=== PATIENT | female | born 1950 | race Caucasian/White ===

== ENCOUNTER 2024-07-30 10:38 | Outpatient (AMB) | payer MEDICARE, SELFPAY ==
[2024-07-30 10:52] VITALS: BMI 21.4
--- NOTE | 2024-07-30 10:52 | HO.SPINEOV ---
Vital Signs 07/30/24 10:52 Height 4 ft 11 in Weight 106 lb BMI 21.4 Intake Visit Reasons: LBP Intake Note: Ms. Toribio is here today c/o Low back pain. [employer] Operations Consultant Required: No Allergies No Known Allergies Allergy (Verified 07/30/24 10:52) Physical Exam Vital Signs: BMI result Body Mass Index 21.4 Assessment & Plan Assessment & Plan (1) Juvenile idiopathic scoliosis: Code(s): M41.119 - Juvenile idiopathic scoliosis, site unspecified Category: Medical (2) Osteoporosis: Code(s): M81.0 - Age-related osteoporosis without current pathological fracture Category: Medical Plan Dear colleague On 07/30/2024, I saw for 2nd opinion Brianna Toribio for back pain. HPI: This 73-year-old female is known with a juvenile thoracolumbar scoliosis. She always had back pain but was able to manage it. The last years the pain has been come more prominent and more difficult to manage. She was evaluated by an orthopedic surgeon in [place] who propose to correct her scoliosis to an anterior-posterior approach despite the fact that she is having osteoporosis. On inspection, the patient has a significant thoracolumbar scoliosis, which is confirmed by imaging. T4 is the 1st level where the endplates were parallel. I told the patient that I would not entertain the thought of giving her major spinal surgery. I do not understand the rationale to start correcting aid juvenile scoliosis in a 73-year-old female and stopping the construct at T10. Moreover, this patient has osteoporosis and a major surgery like that will absolutely fail. I discharged her from further follow-up. total time spent was 40 minutes in counseling ,coordination of plan, personal review of imaging, surgical decision making and subsequent plan Naun Bazan MD, PhD Spine Fellowship Trained Neurosurgeon Director, [facility] Coding Level of Care Code New Pt Level 3 (16357) Diagnoses Juvenile idiopathic scoliosis M41.119 Osteoporosis M81.0
--- OUTSIDE RECORDS SUMMARY | 2024-07-30 11:41 | XMS_ITS | Clinical Summary ---
Author Organization [facility] Address [address] [place] [address] Care Team Providers Care Transistor Tester Name Role Phone Carla Marie MD Primary Care Provider [phone] Allergies No known active allergies Medications ezetimibe (ZeTIA) 10 MG tablet Take 10 mg by mouth daily. Active buPROPion (WELLBUTRIN XL) 300 MG 24 hr tablet Take 300 mg by mouth every morning. Swallow whole; do not crush, chew, or divide. Active sertraline (ZOLOFT) 50 MG tablet Take 100 mg by mouth daily. Active amphetamine-dex troamphetamine (ADDERALL, 10MG,) 10 MG tablet Take 10 mg by mouth daily. 10/20/2017 Active oxyCODONE (ROXICODONE) 10 mg Tab immediate release tablet TAKE 1 TABLET BY MOUTH 4 TIMES DAILY NEEDED FOR PAIN 0 10/08/2017 Active lisinopril (PRINIVIL,ZeSTR IL) 20 MG tablet Take 25 mg by mouth daily. Active Vitamin D3 (CHOLECALCIFERO L) 50 MCG (2000 UT) tablet Take 2,000 Units by mouth daily. Active rosuvastatin (CRESTOR) 40 MG tablet Take 40 mg by mouth daily. Active Azelastine-Flut icasone (Dymista) 137-50 MCG/ACT Suspension into each nostril as needed. Active Multiple Vitamins-Minera ls (PRESERVISION AREDS 2+MULTI VIT PO) Take by mouth daily. Active acetaminophen (TYLENOL) 325 MG tabletIndicatio ns:Left carpal tunnel syndrome Take 2 tablets (650 mg total) by mouth 4 times daily (every 6 hours) as needed for mild pain. 30 tablet 03/30/2020 Active oxyCODONE (ROXICODONE) 5 MG immediate release tabletIndicatio ns:Left carpal tunnel syndrome Take 1 tablet (5 mg total) by mouth every 4 (four) hours as needed for severe pain. Max Daily Amount: 30 mg 7 tablet 03/30/2020 Active Active Problems No known active problems Immunizations Immunization Administration Dates Next Due Influenza Inactivated/Split Preservative Free IM 03/26/2018 Social History Tobacco Use Types Packs/Day Years Used Date Smoking Tobacco: Former Cigarettes Q uit: 1986 Smokeless Tobacco: Never Alcohol Use Standard Drinks/Week Comments Yes 1 (1 standard drink = 0.6 oz pur e alcohol) 2x/week Comments No Sex and Gender Information Value Date Recorded Sex Assigned at Female 05/24/2024 3:07 PM EST Legal Sex Female 5:08 PM EDT Gender Identity Female 05/24/2024 3:07 PM EST Sexual Orientation Heterosexual (straight) 05/24 3:07 PM EST Last Filed Vital Signs Vital Sign Reading Time Taken Comments Blood Pressure 137/80 03/30/2020 5:15 PM EST Pulse 88 03/30/2020 5:15 PM EST Temperature 36.1 ??C (96.9 ??F) 03/30/2020 3:57 PM ES T Respiratory Rate 13 03/30/2020 5:15 PM EST Oxygen Saturation 96% 03/30/2020 5:15 PM EST Inhaled Oxygen Concentration - - Weight 49 kg (108 lb) 03/21/2020 5:19 PM EST Height 157.5 cm (5' 2 ) 03/21/2020 5:19 PM EST Body Mass Index 19.75 03/21/2020 5:19 PM EST Plan of Treatment Health Maintenance Due Date Last Done Comments Hepatitis C Virus Screening 1950 DTaP/Tdap/Td Vaccines (1 - Tdap) 1969 Colonoscopy 10/05/1995 Pneumococcal Vaccines 50+ (1 of 1 - PCV) 2000 Zoster (Shingles) Vaccine (1 of 2) 2000 DXA Bone Density (Females,Ages 65 and older) 01/10/2023 01/10/2021, 07/06/2018 Mammogram 09/19/2023 09/18/2021, 06/12, 03/31/2020, Additional history exists Influenza Vaccine 11/13/2023 03/15/2022, , 03/19/2021, Additional history exists COVID-19 Vaccine ( season) 2023 02/25/2022, 12/29/2020, 07/10/2020, Additional history exists RSV Vaccine 60 years and older and Patients (1 - 1-dose 75+ series) 2025 Hepatitis B Vaccines Aged Out No long er eligible based on patient's age to complete this topic Medical Devices Implanted Type Area Color Paste Mixer Device Identifier Shelf Expiration Date Model / Serial / Lot Memory Gel Breast Implant Implanted:Qty: 1 on 12/12/2017 by Sabino Chaves MD at [facility] Breast Left: Breast [employer] [facility] 11/28/2021 [id number] / [id number] / Procedures Procedure Name Priority Date/Time Associated Diagnosis Comments MG HELIO- BREAST DIAGNOSTIC RIGHT Routine 09/18/2021 4:21 PM EDT BD BONE DENSITY STUDY - AXIAL Routine 01/10/2021 7:13 AM EDT from Last 3 Months or Most Recently Relevant to Health Maintenance Results * MG HELIO- BREAST DIAGNOSTIC RIGHT (09/18/2021 4:21 PM EDT) Anatomical Region Laterality Modality Other 09/18/2021 9:00 AM EDT 09/18/2021 9:00 AM EDT Narrative 09/18/2021 4:21 PM EDT HISTORY: Patient is 70 years old and is seen for diagnostic evaluation of palpable abnormality felt by referring clinician in the right breast. The patient has a history of left mastectomy more than 10 years ago. ??The patient has a history of left breast cancer in 2000. The patient has the following family history of breast cancer: ??female cousin, at age 40, breast cancer and paternal aunt, at age 45. FILMS COMPARED: The present examination has been compared to prior imaging studies dated 06/11/2021 and 03/23/2020. HELIO STATEMENT: Computer-aided detection was utilized by the radiologist in the interpretation of this examination. The following digital mammographic views were obtained: right craniocaudal with tomosynthesis, right craniocaudal spot compression with tomosynthesis, right mediolateral oblique with tomosynthesis, right mediolateral oblique spot compression with tomosynthesis. MAMMOGRAM FINDINGS: The breast is heterogeneously dense, which may obscure small masses. (ACR BIRADS density Category c) * There is a saline implant in the left breast. Finding 1: ??There are amorphous and fine pleomorphic calcifications with grouped distribution seen in the right breast upper outer quadrant at 10 oclock located 4 centimeters from the nipple. Finding 2: ??There are amorphous calcifications with grouped distribution seen in the right breast upper outer quadrant at 11 oclock located 6 centimeters from the nipple. Finding 3: ??There is no radiographic abnormality in the region of the palpable abnormality in the right breast at 8 oclock located 1 centimeter from the nipple. ULTRASOUND FINDINGS: Targeted high resolution grayscale sonography was performed of the area of concern. Finding 3: ??There is an area of altered echotexture with angular margins and internal vascularity measuring 4 millimeters seen in the right breast lower outer quadrant at 8 oclock located 1 centimeter from the nipple. Internal echogenicity is hypoechoic. There is no effect on posterior tissue. Finding correlates to the palpable abnormality in the right breast at 8 oclock located 1 centimeter from the nipple. Finding 4: ??There is a solid mass with internal vascularity measuring 10 x 5 x 10 mm seen in the left breast upper outer quadrant at 2 oclock. Internal echogenicity is hypoechoic. There is increased sound transmission. Finding correlates to the palpable abnormality in the left breast at 2 oclock. This finding is most consistent with a intramammary lymph node. Per the patient this has been a stable palpable finding. Finding 5: ??There is an oval solid mass with internal vascularity measuring 8 x 4 x 8 mm seen in the left breast at 3 oclock. Internal echogenicity is hypoechoic. There is increased sound transmission. Finding correlates to the palpable abnormality in the left breast at 3 oclock. This finding is most consistent with a intramammary lymph node. Per the patient this has been a stable palpable finding. IMPRESSION: Finding 1: ??Calcifications in the right breast upper outer quadrant at 10 oclock located 4 centimeters from the nipple are suspicious. A stereotactically guided core biopsy is recommended. Finding 2: ??Amorphous calcifications in the right breast upper outer quadrant at 11 oclock located 6 centimeters from the nipple are probably benign. A short interval follow-up diagnostic 2D mammogram of the right breast in 6 months is recommended. Finding 3: ??Area of altered echotexture in the right breast is suspicious. An ultrasound core guided biopsy is recommended. Recommendations given to Julianne OLIVARES on 09/18/21 @ 2:00pm. Finding 4: ??Solid mass in the left breast upper outer quadrant at 2 oclock is probably benign. Short interval follow-up diagnostic ultrasound of the left breast in 6 months is recommended. Finding 5: ??Solid mass in the left breast at 3 oclock is probably benign. Short interval follow-up diagnostic ultrasound of the left breast in 6 months is recommended. The patient was informed of these findings at the time of the exam. The patient will receive a lay summary of the results of this breast imaging exam. Lay summaries for mammography examinations will also identify the patients personal breast tissue composition as required by state law. BIRADS Category 4: Suspicious Abnormality Thank you for referring your patient to us, Juju Lee MD [id number] (Electronically Signed - 09/18/2021 16:21) Procedure Note Juju Lee MD - 09/18/2021 HISTORY: Patient is 70 years old and is seen for diagnostic evaluation of palpableabnormality felt by referring clinician in the right breast. The patient has a history of left mastectomy more than 10 years ago. Thepatient has a history of left breast cancer in 2000. The patient has the following family history of breast cancer: female cousin, at age 40, breast cancer and paternal aunt, at age 45. FILMS COMPARED: The present examination has been compared to prior imaging studies dated06/11/2021 and 03/23/2020. HELIO STATEMENT: Computer-aided detection was utilized by the radiologist in the interpretation of this examination. The following digital mammographic views were obtained: right craniocaudalwith tomosynthesis, right craniocaudal spot compression withtomosynthesis, right mediolateral oblique with tomosynthesis, rightmediolateral oblique spot compression with tomosynthesis. MAMMOGRAM FINDINGS: The breast is heterogeneously dense, which may obscure small masses. (ACRBIRADS density Category c) * There is a saline implant in the left breast. Finding 1: There are amorphous and fine pleomorphic calcifications withgrouped distribution seen in the right breast upper outer quadrant at 10oclock located 4 centimeters from the nipple. Finding 2: There are amorphous calcifications with grouped distribution seen in the right breast upper outer quadrant at 11 oclock located 6centimeters from the nipple. Finding 3: There is no radiographic abnormality in the region of the palpable abnormality in the right breast at 8 oclock located 1 centimeterfrom the nipple. ULTRASOUND FINDINGS: Targeted high resolution grayscale sonography was performed of the area ofconcern. Finding 3: There is an area of altered echotexture with angular margins and internal vascularity measuring 4 millimeters seen in the right breastlower outer quadrant at 8 oclock located 1 centimeter from the nipple.Internal echogenicity is hypoechoic. There is no effect on posterior tissue. Finding correlates to the palpable abnormality in the rightbreast at 8 oclock located 1 centimeter from the nipple. Finding 4: There is a solid mass with internal vascularity measuring 10x 5 x 10 mm seen in the left breast upper outer quadrant at 2 oclock. Internal echogenicity is hypoechoic. There is increased soundtransmission. Finding correlates to the palpable abnormality in the leftbreast at 2 oclock. This finding is most consistent with a intramammary lymph node. Per thepatient this has been a stable palpable finding. Finding 5: There is an oval solid mass with internal vascularitymeasuring 8 x 4 x 8 mm seen in the left breast at 3 oclock. Internal echogenicity ishypoechoic. There is increased sound transmission. Finding correlates to the palpable abnormality in the left breast at 3 oclock. This finding is most consistent with a intramammary lymph node. Per thepatient this has been a stable palpable finding. IMPRESSION: Finding 1: Calcifications in the right breast upper outer quadrant at 10oclock located 4 centimeters from the nipple are suspicious. Astereotactically guided core biopsy is recommended. Finding 2: Amorphous calcifications in the right breast upper outer quadrant at 11 oclock located 6 centimeters from the nipple are probablybenign. A short interval follow-up diagnostic 2D mammogram of the right breast in 6 months is recommended. Finding 3: Area of altered echotexture in the right breast issuspicious. An ultrasound core guided biopsy is recommended. Recommendations given to Julianne OLIVARES on 09/18/21 @ 2:00pm. Finding 4: Solid mass in the left breast upper outer quadrant at 2oclock is probably benign. Short interval follow-up diagnostic ultrasound ofthe left breast in 6 months is recommended. Finding 5: Solid mass in the left breast at 3 oclock is probably benign.Short interval follow-up diagnostic ultrasound of the left breast in 6 months is recommended. The patient was informed of these findings at the time of the exam. The patient will receive a lay summary of the results of this breast imaging exam. Lay summaries for mammography examinations will alsoidentify the patients personal breast tissue composition as required bystate law. BIRADS Category 4: Suspicious Abnormality Thank you for referring your patient to us, Juju Lee MD [id number] (Electronically Signed - 09/18/2021 16:21) us Milvia Ballesteros DO IMG LEGACY PROCEDURES Alysia l Result * BD BONE DENSITY STUDY - AXIAL (01/10/2021 7:13 AM EDT) Anatomical Region Laterality Modality Other 01/09/2021 10:1 5 AM EDT 01/09/2021 10:15 AM EDT Narrative 01/10/2021 7:13 AM EDT EXAMINATION: BONE DENSITOMETRY CLINICAL INDICATION: Osteoporosis. COMPARISON: Previous BD dated 07/06/2018 and baseline BD dated 09/21/2004. TECHNIQUE: Using a Near Infinity DXA system (software version: 14.10) manufactured by [employer], dual-energy x-ray absorptiometry was performed of the lumbar spine and left hip. The images are of good technical quality. Summary results are attached. FINDINGS: AP SPINE L1-L4: Current: BMD 1.124 g/cm2, Z-score 1.9, T-score -0.5, normal, 8.1% decrease from previous, 2.2% decrease from baseline (<5% change is not significant). Prior: BMD 1.223 g/cm2. Baseline: BMD 1.149 g/cm2. LEFT FEMUR, NECK: Current: BMD 0.730 g/cm2, Z-score -0.1, T-score -2.2, osteopenia. Prior: BMD 0.745 g/cm2. Baseline: BMD 0.913 g/cm2. LEFT FEMUR, TOTAL: Current: BMD 0.763 g/cm2, Z-score 0.0, T-score -1.9, osteopenia, 2.6% decrease from previous, 16.8% decrease from baseline (<5% change is not significant). Prior: BMD 0.783 g/cm2. Baseline: BMD 0.917 g/cm2. IDENTIFIED RISK FACTORS: Menopause, height loss, family history (parent hip fracture), low body weight, osteoporosis. HISTORY OF FRACTURE: None listed. MEDICATIONS: Vitamin D. IMPRESSION: 1. DIAGNOSIS: Osteopenia based on the lowest T-score value of -2.2 in the femoral neck applying World Health Organization criteria. ?? 2. 10-YEAR FRACTURE RISK PREDICTION, FRAX: Major osteoporotic fracture (clinical spine, forearm, hip or shoulder) 18.3%. Hip fracture 5.9%. 3. Treatment Recommendations: NOF guidelines recommend consideration for treatment in postmenopausal women and men age 50 and older presenting with the following: -A hip or vertebral (clinical or morphometric) fracture. -T-score less than or equal to -2.5 at the femoral neck or spine after appropriate evaluation to exclude secondary causes. -Low bone mass at the hip or spine and a 10-year fracture probability by FRAX of greater than or equal to 3% for hip fracture or greater than or equal to 20% for major osteoporotic fracture based on the [place] adapted WHO algorithm. 4. Other Recommendations: All treatment decisions require clinical judgment and consideration of individual patient factors, including patient preferences, comorbidities, previous drug use, risk factors not captured in the FRAX model (e.g. frailty, falls, vitamin D deficiency, increased bone turnover, interval significant decline in bone density) and possible under or overestimation of fracture risk by FRAX. Additional medical evaluation for secondary cause of low bone mineral density may be appropriate. FUTURE SCAN RECOMMENDATION: People with diagnosed cases of osteoporosis or at high risk for fracture should have regular bone mineral density tests. For patients eligible for Medicare, routine testing is allowed once every 2 years. The testing frequency can be increased to one year for patients who have rapidly progressing disease, those who are receiving or discontinuing medical therapy to restore bone mass, or have additional risk factors. Thank you for referring your patient to us, Vivek Demarco MD [phone] (Electronically Signed - 01/10/2021 07:13) Copy: CARLA MARIE MD [employer] [address] [place] [address] PATIENT , ?? Procedure Note Vivek Demarco B - 01/10/2021 EXAMINATION: BONE DENSITOMETRY CLINICAL INDICATION: Osteoporosis. COMPARISON: Previous BD dated 07/06/2018 and baseline BD dated 09/21/2004. TECHNIQUE: Using a Near Infinity DXA system (software version:14.10) manufactured by [employer], dual-energy x-ray absorptiometrywas performed of the lumbar spine and left hip. The images are of goodtechnical quality. Summary results are attached. FINDINGS: AP SPINE L1-L4: Current: BMD 1.124 g/cm2, Z-score 1.9, T-score -0.5, normal, 8.1%decrease from previous, 2.2% decrease from baseline (<5% change is notsignificant). Prior: BMD 1.223 g/cm2. Baseline: BMD 1.149 g/cm2. LEFT FEMUR, NECK: Current: BMD 0.730 g/cm2, Z-score -0.1, T-score -2.2, osteopenia. Prior: BMD 0.745 g/cm2. Baseline: BMD 0.913 g/cm2. LEFT FEMUR, TOTAL: Current: BMD 0.763 g/cm2, Z-score 0.0, T-score -1.9, osteopenia, 2.6%decrease from previous, 16.8% decrease from baseline (<5% change is notsignificant). Prior: BMD 0.783 g/cm2. Baseline: BMD 0.917 g/cm2. IDENTIFIED RISK FACTORS: Menopause, height loss, family history (parent hip fracture), low bodyweight, osteoporosis. HISTORY OF FRACTURE: None listed. MEDICATIONS: Vitamin D. IMPRESSION: 1. DIAGNOSIS: Osteopenia based on the lowest T-score value of -2.2 inthe femoral neck applying World Health Organization criteria. 2. 10-YEAR FRACTURE RISK PREDICTION, FRAX: Major osteoporotic fracture (clinical spine, forearm, hip or shoulder) 18.3%. Hip fracture 5.9%. 3. Treatment Recommendations: NOF guidelines recommend consideration for treatment in postmenopausal women and men age 50 and older presenting withthe following: -A hip or vertebral (clinical or morphometric) fracture. -T-score less than or equal to -2.5 at the femoral neck or spine after appropriate evaluation to exclude secondary causes. -Low bone mass at the hip or spine and a 10-year fracture probability byFRAX of greater than or equal to 3% for hip fracture or greater than or equalto 20% for major osteoporotic fracture based on the [place] adapted WHOalgorithm. 4. Other Recommendations: All treatment decisions require clinicaljudgment and consideration of individual patient factors, including patient preferences, comorbidities, previous drug use, risk factors not capturedin the FRAX model (e.g. frailty, falls, vitamin D deficiency, increasedbone turnover, interval significant decline in bone density) and possible underor overestimation of fracture risk by FRAX. Additional medical evaluationfor secondary cause of low bone mineral density may be appropriate. FUTURE SCAN RECOMMENDATION: People with diagnosed cases of osteoporosis or at high risk for fracture should have regular bone mineral density tests. For patients eligiblefor Medicare, routine testing is allowed once every 2 years. The testingfrequency can be increased to one year for patients who have rapidly progressing disease, those who are receiving or discontinuing medical therapy torestore bone mass, or have additional risk factors. Thank you for referring your patient to us, Vivek Demarco MD [phone] (Electronically Signed - 01/10/2021 07:13) Copy: CARLA MARIE MD [employer] [address] [employer] [address] PATIENT , Bry Padron MD IMG LEGACY PROCEDURES Fin al Result from Last 3 Months or Most Recently Relevant to Health Maintenance Insurance [facility] Advance Directives * Full Code (Latest Code Status on File) Date Activated Date Inactivated Comments 12/12/2017 11:29 AM 03/30/2020 1:15 PM Care Teams Transistor Tester Relationship Specialty Start Date End Date Carla Marie MD PCP - General Cardiovascular Disease 08/28/15
--- OUTSIDE RECORDS SUMMARY | 2024-07-30 11:41 | XMS_ITS | Encounter Summary ---
Author Organization [facility] Address [address] [place] [id number] Care Team Providers [employer] Name Role Phone Bhavesh Marie MD Primary Care Provider [phone] Encounter Details Date Type Department Care Team (Late st Contact Info) Description 10/13/2017 3:50 PM EDT Hospital Encounter [facility] [address] [place] [address] Maurilio Martin MD [address] [place] [address] Social History Tobacco Use Types Packs/Day Years [...] Orientation Heterosexual (straight) 05/24 3:07 PM EST COVID-19 Exposure Response Date Recorded In the last month, have you been in contact with someone who was confirmed or suspected to have Coronavirus / COVID-19? No / Unsure 03/30/2020 1:41 PM EST documented as of this encounter Plan of Treatment Not on file documented as of this encounter Procedures Procedure Name Priority Date/Time Associated Diagnosis Comments XR HAND 3+ VIEWS-LEFT Routine 10/13/2017 3:55 PM EDT Pain of finger of left hand documented in this encounter Results * XR Hand 3+ views-Left (10/13/2017 3:55 PM EDT) Anatomical Region Laterality Modality Hand Left Computed Radiogr aphy 10/13/2017 3:56 PM EDT Impressions 10/13/2017 3:58 PM EDT Osteophytic changes are seen in the first and second DIP joints. No acute process. Narrative 10/13/2017 3:58 PM EDT XR HAND 3+ VIEWS-LEFT: 10/13/2017 3:50 PM CLINICAL HISTORY: 1st and 2nd digit pain. Pain of finger of left hand. 3 views. 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 The soft tissues are unremarkable. Procedure Note Yarelis Mendez MD - 10/13/2017 XR HAND 3+ VIEWS-LEFT: 10/13/2017 3:50 PM CLINICAL HISTORY: 1st and 2nd digit pain. Pain of finger of left hand. 3 views. FINDINGS: Mild osteoarthritic changes are seen in the first and second DIPjoints with some joint space narrowing and marginal osteophyte formation.The soft tissues are unremarkable. IMPRESSION: Osteophytic changes are seen in the first and second DIP joints. No acute process. [facility] ORDER[facility] S Final Result documented in this encounter Visit Diagnoses Not on filedocumented in this encounter Care Teams [employer] Relationship Specialty Start Date End Date Bhavesh Marie MD PCP - General Cardiovascular Disease 08/28/15 documented as of this encounter
--- OUTSIDE RECORDS SUMMARY | 2024-07-30 11:41 | XMS_ITS | Clinical Summary ---
Author Organization [facility] Address [address] [place] [address] Care Team Providers Care Public Health Microbiologist Name Role Phone Salima Medley Primary Care Provider [phone] Salima Medley Unavailable Allergies Active Allergy Reactions Criticality Noted Date Comments House Dust Itching 06/13/2022 Other Other (see comments) 04/15/2013 Mold Medications * This document contains information received from the source organization and may not represent a complete record from that organization. cholecalciferol, vitamin D3, 50 mcg (2,000 unit) tablet Take 2,000 Units by mouth in the morning. Active traZODone (DESYREL) 50 mg tablet TAKE 1 TABLET BY MOUTH EVERYDAY AT BEDTIME 3 Active tamoxifen (NOLVADEX) 20 mg chemo tablet Take 20 mg by mouth in the morning. 3 Active meloxicam (MOBIC) tablet TAKE 1 TABLET TWICE A DAY NEEDED WITH FOOD DNFB 10/08/21 3 Active loratadine 10 mg capsule Take 10 mg by mouth in the morning and 10 mg before bedtime. Active vit C,T-Pz-ogcfw-lut ein-zeaxan (PreserVision AREDS-2) 250-90-40-1 mg capsule Take by mouth daily. Active tretinoin (RETIN-A) 0.05 % cream Apply topically nightly. Active cyanocobalamin, vitamin B-12, (VITAMIN B-12 ORAL) Take 1 tablet by mouth in the morning. Active PreviDent 5000 Booster Plus 1.1 % paste 3 Active azelastine (ASTELIN) 137 mcg (0.1 %) nasal sprayIndications :Allergic rhinitis, unspecified seasonality, unspecified trigger use 2 sprays in each nostril twice daily 90 mL 3 4 Active venlafaxine XR (EFFEXOR-XR) 37.5 mg 24 hr capsule Take 37.5 mg by mouth in the morning. Patient reports 225 mg daily reported on 12/18/2023. . 4 Active ARIPiprazole (ABILIFY) 2 mg tablet Take 1 mg by mouth. 4 Active rosuvastatin (CRESTOR) 40 mg tabletIndication s:Hypercholester emia TAKE 1 TABLET BY MOUTH IN THE MORNING 90 tablet 3 4 Active ezetimibe (ZETIA) 10 mg tabletIndication s:Hypercholester emia Take 1 tablet (10 mg total) by mouth nightly. 100 tablet 3 4 01/20/20 25 Active lisinopriL (PRINIVIL) 20 mg tabletIndication s:Essential hypertension TAKE 2 TABLETS BY MOUTH IN THE MORNING 180 tablet 3 4 Active prucalopride (MOTEGRITY) 1 mg tabletIndication s:Chronic constipation Take 1 tablet (1 mg total) by mouth in the morning. 30 tablet 2 5 09/16/19 25 Active Additional Information Patient not taking.Reported on 07/15/2024 amLODIPine (NORVASC) 5 mg tabletIndication s:Essential hypertension Take 1 tablet (5 mg total) by mouth in the morning. 90 tablet 3 5 Active oxyCODONE (ROXICODONE) 10 mg tablet TAKE 1 TABLET EVERY 4 HOURS NEEDED 5 Active Active Problems Problem Noted Date Diagnosed Date Age-related osteoporosis wit hout current pathological fracture 08/04/2023 History of vertebral compression fracture 2023 Gluteal pain 08/04/2023 Hypercholesteremia 08/20/2022 Overview (08/20/2022): 06/04/2022 cholesterol 142 HDL 93 triglycerides 61 LDL 35 JESÚS (generalized anxiety disorder) 06/20/2022 Malignant tumor of breast 04/01/2022 Overview (10/17/2022): typical ductal hyperplasia right breast lobular carcinoma in situ 8 atypical ductal hyperplasia right breast mastectomy partial 04/12/2022 Malignant tumor of breast 04/01/2022 lobular carcinoma in situ of right breast 03/19/2022 history of breast biopsy 11/18/2021 atypical ductal hyperplasia right breast 11/16/2021 2002 left mastectomy, TRAM flap rconstruction and XRT. Lobular carcinoma in situ (LCIS) of right breast 03/19/2022 Overview (08/20/2022): Added automatically from request for surgery [id number] Atypical ductal hyperplasia of breast 10/18/2021 Overview (10/17/2022): right breast/ 2021 Osteopenia 07/14/2018 Overview (10/17/2022): 07/09/18 T score spine -2.1, fem neck -1.8; FRAX: 18.3% risk of major osteoporotic fx & 3.3% risk of hip fx Scoliosis, or kyphoscoliosis, idiopathic 012 Overview (08/20/2022): Levoconvex thoracolumbar and dextroconvex mid thoracic curves.?? Pain management Dr Sebastian In past Has been in 2 week program through a chiropracter Allergic rhinitis 02/18/2012 Depressive disorder 02/18/2012 Disorder of bone and articular cartilage 012 Essential hypertension 02/18/2012 Resolved Problems Problem Noted Date Diagnosed Date Resolved Date Menopausal syndrome 08/20/2022 09/04/19 24 Recurrent major depressive d isorder, in partial remission 06/20/2022 09/04/2023 Pure hypercholesterolemia 04/01/2012 Encounters Date Type Department Care Team Description 07/15/2024 1:30 PM EDT Office Visit [facility] Department of Comprehensive Spine Services [address] [place] [address] Abdiel Garrison MD 07/13/2024 5:30 PM EDT Ancillary Procedure [facility] Imaging Department of MRI [address] [place] [address] Spinal stenosis of lumbar region with neurogenic claudication; Idiopathic scoliosis in adult patient 07/13/2024 5:00 PM EDT Ancillary Procedure [facility] Imaging Department of MRI [address] [place] [address] Spinal stenosis of lumbar region with neurogenic claudication; Idiopathic scoliosis in adult patient 07/13/2024 4:30 PM EDT Ancillary Procedure [facility] Department of Cat Scan [address] [place] [address] Spinal stenosis of lumbar region with neurogenic claudication; Idiopathic scoliosis in adult patient 07/13/2024 4:15 PM EDT Ancillary Procedure [facility] Department of Cat Scan [address] [place] [address] Spinal stenosis of lumbar region with neurogenic claudication; Idiopathic scoliosis in adult patient 06/21/2024 3:30 PM EDT Ancillary Procedure [facility] Department of Xray [address] [place] [address] 06/21/2024 3:15 PM EDT Office Visit [facility] of Comprehensive Spine Services [address] [place] [address] Abdiel Garrison MD Spinal stenosis of lumbar region with neurogenic claudication (Primary Dx); Idiopathic scoliosis in adult patient 06/17/2024 2:20 PM EST Office Visit [facility] Department of Internal Medicine [address] [place] [phone] Salima Medley for annual wellness visit (AWV) in Medicare patient (Primary Dx); Annual physical exam; Chronic constipation; Essential hypertension; Age-related osteoporosis without current pathological fracture; Depressive disorder; Spinal stenosis at L4-L5 level; Scoliosis, or kyphoscoliosis, idiopathic; Osteopenia of both hips; Prophylactic use of SERMs; BMI 21.0-21.9, adult from Last 3 Months Immunizations Immunization Administration Dates Next Due COVID-19 MRNA (MODERNA) 12/29/2020,06/07/2020 COVID-19 MRNA MODERNA BIVALENT 02/25/2022 Influenza Vaccine 65y and older 03/15/2022,03/19,03/17/2019 Influenza, Quadrivalent 03/26/2018,03/21/2017, Pneumococcal Polysaccharide PCV-23 03/17/2019, Shingrix (Zoster Recombinant) 02/25/2022 Tdap 04/28/2016 Family History Medical History Relation Comments Hypertension Father Stroke Maternal Grandmother Arthritis Mother Lymphoma Nephew Ovarian cancer Sister 1 Cancer Sister 2 Relation Status Comments Father Maternal Grandmother Mother Nephew Alive Sister 1 Alive Sister 2 Social History Tobacco Use Types Packs/Day Years Used Date Smoking Tobacco: Former Cigarettes 0.5 15.1 0 09/15/1971 - 10/12/1986 Smokeless Tobacco: Never Tobacco Cessation:Counseling Given: Not Answered Alcohol Use Standard Drinks/Week Comments Yes 1 (1 standard drink = 0.6 oz pure alcohol) red wine & chocolate for [facility] Utilities Answer Date Recorded In the past 12 months has [employer] electric, gas, oil, or water company threatened to shut off services in your home? No 06/17/2024 Overall Financial Resource Strain (CARDIA) Answe r Date Recorded How hard is it for you to pa y for the very basics like food, housing, medical care, and heating? Not hard at all 06/17/2024 PHQ-2 Answer Date Recorded PHQ-2 Score 2 06/17/2024 Exercise Vital Sign Answer Date Recorde d On average, how many days pe r week do you engage in moderate to strenuous exercise (like a brisk walk)? 4 days 06/17/2024 On average, how many minutes do you engage in exercise at this level? 40 min 06/17/2024 Hunger Vital Sign Answer Date Recorded Within the past 12 months, y ou worried that your food would run out before you got the money to buy more. Never true 06/18/19 25 Within the past 12 months, t he food you bought just didn't last and you didn't have money to get more. Never true 06/17/2024 PRAPARE - Transportation Answer Date Re corded In the past 12 months, has l ack of transportation kept you from medical appointments or from getting medications? No 06/17/2024 Lack of Transportation (Non-Medical) Not on file 06/17/2024 Housing Stability Vital Sign Answer Ger e Recorded In the last 12 months, was t here a time when you were not able to pay the mortgage or rent on time? No 06/17/2024 In the past 12 months, how m any times have you moved where you were living? 0 06/17/2024 At any time in the past 12 m [facility], were you homeless or living in a custodial (including now)? No 06/17/2024 Comments Unknown Sex and Gender Information Value Date Recorded Sex Assigned at Female 07/10/2023 9:56 AM EDT Legal Sex Female 9:14 AM EST Gender Identity Female 07/10/2023 9:56 AM EDT Sexual Orientation Straight 07/10/2023 9: 56 AM EDT COVID-19 Exposure Response Date Recorded In the last 10 days, have yo u been in contact with someone who was confirmed or suspected to have Coronavirus/COVID-19? No / Unsure 07/15/2024 1:17 PM EDT Last Filed Vital Signs Vital Sign Reading Time Taken Comments Blood Pressure 159/100 06/21/2024 3:57 PM EDT Pulse 102 06/21/2024 3:57 PM EDT Temperature 36.3 ??C (97.3 ??F) 06/17/2024 2:36 PM ES T Respiratory Rate 16 07/14/2023 2:56 PM EDT Oxygen Saturation 99% 06/17/2024 2:36 PM EST Inhaled Oxygen Concentration - - Weight 48.1 kg (106 lb) 07/09/2024 3:50 PM EDT Height 152.4 cm (5') 07/09/2024 3:50 PM EDT Body Mass Index 20.7 07/09/2024 3:50 PM EDT Plan of Treatment Upcoming Encounters Date Type Department Care Team (Late st Contact Info) Description 08/24/2024 11:20 AM EDT Office Visit [facility] Department of Internal Medicine [address] [place] [phone] Salima Med[address] [place] [address], [place] [address] 06/21/2025 8:40 AM EDT Office Visit [facility] Department of Internal Medicine [address] [place] [phone] Salima Med[address] [place] [id number] Health Maintenance Due Date Last Done Comments CT Colonography 1950 FOBT 1950 Flex Sigmoidoscopy - 5y 1950 FIT-DNA (Cologuard) 06/09/2022 06/09/2019 FIT 10/24/2023 10/23/2022 COVID-19 Vaccine ( season) 2024 03/20/2024, 01/26/2023, 02/25/2022, Additional history exists Colonoscopy 05/11/2025 Colorectal Cancer Screening 05/11/2025 Medicare Annual Wellness (AWV) 06/18/2025 06/17/2024 Bone Density Screening 08/12/2025 08/13/2023 Breast Cancer Screening 03/08/2026 03/08/20 24, 05/09/2023 (Done Elsewhere - With Results), 05/09/2023, Additional history exists DTaP,Tdap,and Td Vaccines (2 - Td or Tdap) 04/28/2026 04/28/2016 Pneumococcal Vaccine, 50+ Years Discontinued 03/17/2019, 04/28/2016 Zoster Vaccines Discontinued 02/25/2022 Influenza Vaccine Completed 03/20/2024, , 03/15/2022, Additional history exists HIV Screening Discontinued HPV Vaccines Aged Out No longer eligi ble based on patient's age to complete this topic Hepatitis A Vaccines Aged Out No long er eligible based on patient's age to complete this topic Hepatitis C Screening Discontinued Meningococcal Vaccine Aged Out No sena walter eligible based on patient's age to complete this topic Procedures Procedure Name Priority Date/Time Associated Diagnosis Comments CT THORACIC SPINE WO IV CONTRAST Routine 07/13/2024 4:29 PM EDT Spinal stenosis of lumbar region with neurogenic claudication Idiopathic scoliosis in adult patient CT LUMBAR SPINE WO IV CONTRAST Routine 07/13/2024 4:29 PM EDT Spinal stenosis of lumbar region with neurogenic claudication Idiopathic scoliosis in adult patient TSH (Q) Routine 06/22/2024 3:16 PM EDT Encounter for annual wellness visit (AWV) in Medicare patient Annual physical exam Chronic constipation Essential hypertension Age-related osteoporosis without current pathological fracture Depressive disorder Spinal stenosis at L4-L5 level Scoliosis, or kyphoscoliosis, idiopathic Osteopenia of both hips BMI 21.0-21.9, adult Prophylactic use of SERMs AST (Q) Routine 06/22/2024 3:16 PM EDT Encounter for annual wellness visit (AWV) in Medicare patient Annual physical exam Chronic constipation Essential hypertension Age-related osteoporosis without current pathological fracture Depressive disorder Spinal stenosis at L4-L5 level Scoliosis, or kyphoscoliosis, idiopathic Osteopenia of both hips BMI 21.0-21.9, adult Prophylactic use of SERMs CBC (H/H, RBC, INDICES, WBC, PLT) (Q) Routine 06/22/2024 3:16 PM EDT Encounter for annual wellness visit (AWV) in Medicare patient Annual physical exam Chronic constipation Essential hypertension Age-related osteoporosis without current pathological fracture Depressive disorder Spinal stenosis at L4-L5 level Scoliosis, or kyphoscoliosis, idiopathic Osteopenia of both hips BMI 21.0-21.9, adult Prophylactic use of SERMs BASIC METABOLIC PANEL (Q) Routine 06/22/2024 3:16 PM EDT Encounter for annual wellness visit (AWV) in Medicare patient Annual physical exam Chronic constipation Essential hypertension Age-related osteoporosis without current pathological fracture Depressive disorder Spinal stenosis at L4-L5 level Scoliosis, or kyphoscoliosis, idiopathic Osteopenia of both hips BMI 21.0-21.9, adult Prophylactic use of SERMs ALT (Q) Routine 06/22/2024 3:16 PM EDT Encounter for annual wellness visit (AWV) in Medicare patient Annual physical exam Chronic constipation Essential hypertension Age-related osteoporosis without current pathological fracture Depressive disorder Spinal stenosis at L4-L5 level Scoliosis, or kyphoscoliosis, idiopathic Osteopenia of both hips BMI 21.0-21.9, adult Prophylactic use of SERMs LIPID PANEL WITH REFLEX TO DIRECT LDL (Q) Routine 06/22/2024 3:16 PM EDT Encounter for annual wellness visit (AWV) in Medicare patient Annual physical exam Chronic constipation Essential hypertension Age-related osteoporosis without current pathological fracture Depressive disorder Spinal stenosis at L4-L5 level Scoliosis, or kyphoscoliosis, idiopathic Osteopenia of both hips BMI 21.0-21.9, adult Prophylactic use of SERMs EOS FULL BODY 2VW (AP+LATERAL) W LUMBAR + CERVICAL FLEX/EX Routine 06/21/2024 3:39 PM EDT Spinal stenosis of lumbar region with neurogenic claudication DXA BONE DENSITY STANDARD EXAM SPINE + FEMUR W OR WO TBS Routine 08/13/2023 3:11 PM EDT Stress reaction of bone Disorder of bone and articular cartilage Osteopenia of multiple sites FECAL IMMUNOCHEMICAL HB Routine 10/23/2022 11:11 AM EDT Screen for colon cancer from Last 3 Months or Most Recently Relevant to Health Maintenance Results * CT thoracic spine wo/ iv contrast (07/13/2024 4:29 PM EDT) Anatomical Region Laterality Modality T-spine, Spine Computed Tomogra phy 07/15/2024 2:20 PM EDT Addenda Addendum by Jaden Goodman MD on 07/15/2024 2:28 PM EDT ADDENDUM: Chronic healed left-sided rib fractures of T11 and T12 posteriorly. Reminder to Patients and Legally Authorized Representatives: Language in this report is designed for medical communication with other treating physicians and clinical practitioners. Please speak with your provider(s) about any questions or concerns related to the content of this report. MIGUEL Gonzales^0 Impressions 07/15/2024 2:24 PM EDT Moderate to severe dextro convex curvature of the mid thoracic spine. No severe spinal canal stenosis. Multilevel degenerative disc disease. Multilevel neural foraminal narrowing as described above. Reminder to Patients and Legally Authorized Representatives: Language in this report is designed for medical communication with other treating physicians and clinical practitioners. Please speak with your provider(s) about any questions or concerns related to the content of this report. MIGUEL Gonzales^0 Narrative 07/15/2024 2:24 PM EDT EXAM: CT THORACIC SPINE WITHOUT CONTRAST INDICATION: Scoliosis thoracolumbar scoliosis M48.062 Spinal stenosis, lumbar region with neurogenic claudication M41.20 Other idiopathic scoliosis, site unspecified COMPARISON: None available. TECHNIQUE: CT scan of the thoracic spine was performed. ??Bone windows are submitted. Exam was performed using automated dose attenuation correction. Multiplanar reformats were performed and reviewed. FINDINGS: No acute fracture. Dextro convex curvature of the midthoracic spine. Degenerative anterior wedging of the T12 vertebral body. Vertebral body heights are otherwise intact. Moderate multilevel degenerative disc disease with right-sided predominance of the lower thoracic spine. No severe spinal canal stenosis. Facets appear well aligned. Moderate lower lumbar spine facet arthropathy. Severe left T6-T7 and T10-T11 neural foraminal narrowing. Severe right T10-T11 neural foraminal narrowing. Paraspinal muscle bulk appears intact. Procedure Note Jaden Goodman MD - 07/15/2024 EXAM: CT THORACIC SPINE WITHOUT CONTRAST INDICATION: Scoliosis thoracolumbar scoliosis M48.062 Spinal stenosis, lumbar region with neurogenic claudication M41.20 Other idiopathic scoliosis, site unspecified COMPARISON: None available. TECHNIQUE: CT scan of the thoracic spine was performed. Bone windows aresubmitted. Exam was performed using automated dose attenuation correction.Multiplanar reformats were performed and reviewed. FINDINGS: No acute fracture. Dextro convex curvature of the midthoracic spine.Degenerative anterior wedging of the T12 vertebral body. Vertebral bodyheights are otherwise intact. Moderate multilevel degenerative discdisease with right-sided predominance of the lower thoracic spine. No severe spinal canal stenosis. Facets appear well aligned. Moderatelower lumbar spine facet arthropathy. Severe left T6-T7 and T10-T11 neural foraminal narrowing. Severe [id number] neural foraminal narrowing. Paraspinal muscle bulk appears intact. IMPRESSION: Moderate to severe dextro convex curvature of the mid thoracic spine. Nosevere spinal canal stenosis. Multilevel degenerative disc disease. Multilevel neural foraminalnarrowing as described above. Reminder to Patients and Legally Authorized Representatives: Language in this report is designed for medical communication with othertreating physicians and clinical practitioners. Please speak with your provider(s) about any questions or concernsrelated to the content of this report. MIGUEL Gonzales^0 us Abdiel Garrison MD IMG CT PROCEDURES Edited R esult - Final * CT lumbar spine wo/ iv contrast (07/13/2024 4:29 PM EDT) Anatomical Region Laterality Modality L-spine, Spine Computed Tomogra phy 07/15/2024 2:10 PM EDT Impressions 07/15/2024 2:19 PM EDT Exam is degraded secondary to extensive scoliotic curvature. Severe levoconvex curvature of the thoracolumbar spine as described above. Degenerative disc disease most prominent at L4-L5 resulting in at least moderate to severe spinal canal stenosis. Multilevel neural foraminal narrowing as described above. Reminder to Patients and Legally Authorized Representatives: Language in this report is designed for medical communication with other treating physicians and clinical practitioners. Please speak with your provider(s) about any questions or concerns related to the content of this report. MIGUEL Gonzales^0 Narrative 07/15/2024 2:19 PM EDT EXAM: CT LUMBAR SPINE WITHOUT CONTRAST INDICATION: Scoliosis thoracolumbar scoliosis M48.062 Spinal stenosis, lumbar region with neurogenic claudication M41.20 Other idiopathic scoliosis, site unspecified COMPARISON: None available. TECHNIQUE: CT scan of the lumbar spine was performed. ??Bone windows are submitted. Exam was performed using automated dose attenuation correction. Multiplanar reformats were performed and reviewed. FINDINGS: There are 5 lumbar-type vertebral bodies. Severe levoconvex curvature of the thoracolumbar spine with apex at L1. Straightening of the normal lumbar lordosis without significant subluxation. Degenerative vertebral body height loss involving the superior endplates of T12 and L1. Vertebral body heights are otherwise intact. Severe multilevel degenerative disc disease with severe disc height loss with right-sided predominance and marginal osteophytes. Extensive subchondral sclerosis is also seen. Severe multilevel facet arthropathy. Facets appear otherwise well aligned. Alignment significantly degrades evaluation of the spinal canal however there is moderate posterior disc bulging at L3-L4 and L4-L5 resulting in at least moderate to severe spinal canal stenosis at L4-L5. Severe multilevel facet arthropathy resulting in severe left L4-L5 and right L1- L2 and L2-L3 neural foraminal narrowing. SI joints demonstrate mild degenerative changes. Paraspinal musculature appears intact. Procedure Note Jaden Goodman MD - 07/15/2024 EXAM: CT LUMBAR SPINE WITHOUT CONTRAST INDICATION: Scoliosis thoracolumbar scoliosis M48.062 Spinal stenosis, lumbar region with neurogenic claudication M41.20 Other idiopathic scoliosis, site unspecified COMPARISON: None available. TECHNIQUE: CT scan of the lumbar spine was performed. Bone windows aresubmitted. Exam was performed using automated dose attenuation correction.Multiplanar reformats were performed and reviewed. FINDINGS: There are 5 lumbar-type vertebral bodies. Severe levoconvex curvature ofthe thoracolumbar spine with apex at L1. Straightening of the normallumbar lordosis without significant subluxation. Degenerative vertebral body height loss involving the superior endplatesof T12 and L1. Vertebral body heights are otherwise intact. Severemultilevel degenerative disc disease with severe disc height loss withright-sided predominance and marginal osteophytes. Extensive subchondralsclerosis is also seen. Severe multilevel facet arthropathy. Facets appear otherwise wellaligned. Alignment significantly degrades evaluation of the spinal canal howeverthere is moderate posterior disc bulging at L3-L4 and L4-L5 resulting inat least moderate to severe spinal canal stenosis at L4-L5. Severe multilevel facet arthropathy resulting in severe left L4-L5 andright L1- L2 and L2-L3 neural foraminal narrowing. SI joints demonstrate mild degenerative changes. Paraspinal musculatureappears intact. IMPRESSION: Exam is degraded secondary to extensive scoliotic curvature. Severe levoconvex curvature of the thoracolumbar spine as describedabove. Degenerative disc disease most prominent at L4-L5 resulting in at leastmoderate to severe spinal canal stenosis. Multilevel neural foraminal narrowing as described above. Reminder to Patients and Legally Authorized Representatives: Language in this report is designed for medical communication with othertreating physicians and clinical practitioners. Please speak with your provider(s) about any questions or concernsrelated to the content of this report. Jaden Goodman, [facility]^0 us Abdiel Garrison MD IMG CT PROCEDURES Final Re sult * CBC (H/H, RBC, INDICES, WBC, PLT) (Q) (06/22/2024 3:16 PM EDT) [facility] White Cell Count 5.3 3.8 - 10.8 Thousand/u L [facility] Red Cell Count 4.23 3.80 - 5.10 Million/uL [facility] Hemoglobin 13.1 11.7 - 15.5 g/dL [facility] Hematocrit 40.1 35.0 - 45.0 % [facility] MCV 94.8 80.0 - 100.0 fL [facility] MCH 31.0 27.0 - 33.0 pg [facility] MCHC 32.7 32.0 - 36.0 g/dL [facility] Comment: For adults, a slight decrease in the calculated MCHC value (in the range of 30 to 32 g/dL) is most likely not clinically significant; however, it should be interpreted with caution in correlation with other red cell parameters and the patient's clinical condition. RBC Distribution Width 11.4 11.0 - 15.0 % [facility] Platelet Count 236 140 - 400 Thousand/u L [facility] MPV 10.1 7.5 - 12.5 fL [facility] 06/22/2024 3:16 PM EDT 06/22/2024 3:17 PM EDT Narrative [facility] - 06/23/2024 6:22 AM EDT FASTING:NO FASTING: NO us Salima UREÑA [facility] LAB ORDERABLES Final R esult [facility] [address] [place] [address] * (ABNORMAL) BASIC METABOLIC PANEL (BMP) (Q) (06/22/2024 3:16 PM EDT) [employer] GLUCOSE 87 65 - 139 mg/dL [facility] Comment: ? Non-fasting reference interval [facility] UREA NITRO (BUN) 10 7 - 25 mg/dL [facility] CREATININE 0.68 0.60 - 1.00 mg/dL [facility] EGFR 92 > OR = 60 mL/min/1. 73m2 [facility] BUN/CREATININE RATIO SEE NOTE: 6 - 22 (calc) [facility] Comment: ?? Not Reported: BUN and Creatinine are within ?? reference range. ? [facility] SODIUM 134(L) 135 - 146 mmol/L [facility] POTASSIUM 4.0 3.5 - 5.3 mmol/L [facility] CHLORIDE 99 98 - 110 mmol/L [facility] Carbon Dioxide (CO2) 28 20 - 32 mmol/L [facility] CALCIUM 9.7 8.6 - 10.4 mg/dL [facility] Blood 06/22/2024 3:16 PM EDT 06/22/2024 3:17 PM EDT Narrative [employer] - 06/23/2024 6:22 AM EDT FASTING:NO FASTING: NO Salima UREÑA [employer] LAB ORDERABLES Final R esult Performing Organization Address [facility]/ZIP Co de Phone Number [employer] [address] [place] [address] * ALT (Q) (06/22/2024 3:16 PM EDT) [facility] ALT 14 6 - 29 U/L [facility] 06/22/2024 3:16 PM EDT 06/22/2024 3:17 PM EDT [facility] - 06/23/2024 6:22 AM EDT FASTING:NO FASTING: NO Salima Medley [employer] LAB ORDERABLES Final R esult [employer] [address] [place] [address] * AST (Q) (06/22/2024 3:16 PM EDT) [facility] AST 21 10 - 35 U/L [facility] Blood 06/22/2024 3:16 PM EDT 06/22/2024 3:17 PM EDT Narrative [facility] - 06/23/2024 6:22 AM EDT FASTING:NO FASTING: NO Salima UREÑA [employer] LAB ORDERABLES Final R esult Performing Organization Address [facility]/ZIP Co de Phone Number [employer] [address] [place] [address] * TSH (Q) (06/22/2024 3:16 PM EDT) [facility] TSH 1.66 0.40 - 4.50 mIU/L [facility] Blood 06/22/2024 3:16 PM EDT 06/22/2024 3:17 PM EDT Narrative [facility] - 06/23/2024 6:22 AM EDT FASTING:NO FASTING: NO Salima UREÑA [employer] LAB ORDERABLES Final R esult Performing Organization Address [facility]/ZIP Co de Phone Number [employer] [address] [place] [phone] * LIPID PANEL WITH REFLEX TO DIRECT LDL (Q) (06/22/2024 3:16 PM EDT) [facility] CHOLESTEROL, TOTAL 124 <200 mg/dL [facility] HDL CHOLESTROL 82 > OR = 50 mg/dL [facility] TRIGLYCERIDES 54 <150 mg/dL [facility] LDL CHOLESTEROL 29 mg/dL (calc) [facility] Comment: Reference range: <100 Desirable range <100 mg/dL for primary prevention; ?? <70 mg/dL for patients with CHD or diabetic patients with > or = 2 CHD risk factors. LDL-C is now calculated using the Dalia calculation, which is a validated novel method providing better accuracy than the Friedewald equation in the estimation of LDL-C. Aaron SS et al. ORALIA. 2013;310(19): 3828-6646 (http://education.Alibaba/faq/LJM905) [facility] CHOL/HDLC RATIO 1.5 <5.0 (calc) [facility] NON HDL CHOLESTEROL 42 <130 mg/dL (calc) [facility] Comment: For patients with diabetes plus 1 major ASCVD risk factor, treating to a non-HDL-C goal of <100 mg/dL (LDL-C of <70 mg/dL) is considered a therapeutic option. 06/22/2024 3:16 PM EDT 06/22/2024 3:17 PM EDT Narrative [facility] - 06/23/2024 6:22 AM EDT FASTING:NO FASTING: NO Salima UREÑA [employer] LAB ORDERABLES Final R esult [employer] [address] [place] [phone] * EOS FULL BODY 2 VW (AP+LATERAL) W LUMBAR + CERVICAL FLEX/EX (06/21/2024 3:39 PM EDT) Anatomical Region Laterality Modality Spine, C-spine, T-spine, L-spine, Lower Leg Digital Radiography 06/21/2024 3:48 PM EDT Impressions 06/21/2024 3:56 PM EDT 1. Scoliosis: T-spine dextroscoliosis of 27 degrees. Thoracolumbar levoscoliosis of 40 degrees. 2. T-spine kyphosis of 35 degrees. 3. Positive sagittal balance. 4. Stable L1 anterior compression deformity. L4-5 4 mm of anterolisthesis on flexion which corrects on extension suspicious for instability. 5. C4-5 and C5-6 malalignment without instability. C-spine osteoarthritis. Electronic signature on this final report indicates that Greg Armendariz MD has personally reviewed this examination Reminder to Patients and Legally Authorized Representatives: Language in this report is designed for medical communication with other treating physicians and clinical practitioners. Please speak with your provider(s) about any questions or concerns related to the content of this report. Narrative 06/21/2024 3:56 PM EDT EXAM: ??EOS FULL BODY 2VW (AP+LATERAL) W LUMBAR + CERVICAL FLEX/EX HISTORY: cervical and lumbar spondylosis M48.062 Spinal stenosis, lumbar region with neurogenic claudication COMPARISON: 10/17/2022 radiographs of the L-spine TECHNIQUE: ??EOS Full Body AP and Lateral and lateral flexion and extension views of the C-spine and L-spine FINDINGS: Scoliosis: Thoracic dextroscoliosis of 27 degrees with probable findings a T1 and T9. Thoracolumbar levoscoliosis of 40 degrees with reference lines at T12 and L5. (Significant curvature = Hammonds angle greater than 10) Kyphosis: 35 degrees. (Normal range 20-45 degrees T3:T12) Sagittal Balance: +7.4 cm. ??(Chi line +/- 2 cm from C7 to post/sup corner of S1) Other Spine Findings: 5 nonrib-bearing lumbar vertebral bodies. Stable L1 anterior compression deformity. Severe osteopenia. No acute fracture or dislocation. L4-5 4 mm of anterolisthesis on flexion which corrects on extension suspicious for instability. C4-5 3 mm of anterolisthesis C5-6 2 to 3 mm of retrolisthesis without instability. No acute fracture or dislocation. Osteopenia. Moderate facet joint DJD throughout. Moderate degenerative disc disease C5-C6 C6-7. Miscellaneous: ??Formed stool throughout large bowel compatible with constipation. Procedure Note Greg Armendariz MD - 06/21/2024 EXAM: EOS FULL BODY 2VW (AP+LATERAL) W LUMBAR + CERVICAL FLEX/EX HISTORY: cervical and lumbar spondylosis M48.062 Spinal stenosis, lumbar region with neurogenic claudication COMPARISON: 10/17/2022 radiographs of the L-spine TECHNIQUE: EOS Full Body AP and Lateral and lateral flexion and extensionviews of the C-spine and L-spine FINDINGS: Scoliosis: Thoracic dextroscoliosis of 27 degrees with probable findings aT1 and T9. Thoracolumbar levoscoliosis of 40 degrees with reference linesat T12 and L5. (Significant curvature = Hammonds angle greater than 10) Kyphosis: 35 degrees. (Normal range 20-45 degrees T3:T12) Sagittal Balance: +7.4 cm. (Chi line +/- 2 cm from C7 to post/supcorner of S1) Other Spine Findings: 5 nonrib-bearing lumbar vertebral bodies. Stable C3apwttcol compression deformity. Severe osteopenia. No acute fracture ordislocation. L4-5 4 mm of anterolisthesis on flexion which corrects onextension suspicious for instability. C4-5 3 mm of anterolisthesis C5-6 2 to 3 mm of retrolisthesis withoutinstability. No acute fracture or dislocation. Osteopenia. Moderate facetjoint DJD throughout. Moderate degenerative disc disease C5-C6 C6-7. Miscellaneous: Formed stool throughout large bowel compatible withconstipation. IMPRESSION: 1. Scoliosis: T-spine dextroscoliosis of 27 degrees. Thoracolumbarlevoscoliosis of 40 degrees. 2. T-spine kyphosis of 35 degrees. 3. Positive sagittal balance. 4. Stable L1 anterior compression deformity. L4-5 4 mm of anterolisthesison flexion which corrects on extension suspicious for instability. 5. C4-5 and C5-6 malalignment without instability. C-spineosteoarthritis. Electronic signature on this final report indicates that Bijal De La Cruz personally reviewed this examination Reminder to Patients and Legally Authorized Representatives: Language in this report is designed for medical communication with othertreating physicians and clinical practitioners. Please speak with your provider(s) about any questions or concernsrelated to the content of this report. us Abdiel Garrison MD IMG XR PROCEDURES Final Re sult * DXA bone density standard exam spine + femur w or wo TBS (08/13/2023 3:11 PM EDT) Anatomical Region Laterality Modality Femur, L-spine Nuclear Medicine 08/13/2023 4:45 PM EDT Impressions 08/13/2023 4:49 PM EDT Normal bone density of the lumbar spine. ?? Osteopenia of the hips. Final report signed by Vivek Bravo MD Reminder to Patients and Legally Authorized Representatives: Language in this report is designed for medical communication with other treating physicians and clinical practitioners. Please speak with your provider(s) about any questions or concerns related to the content of this report. AF^0 Narrative 08/13/2023 4:49 PM EDT DXA BONE DENSITY STANDARD EXAM SPINE + FEMUR W OR WO TBS A bone density study was performed: INDICATION: 72 year old female. Bilateral stress reactions basocervical ?? region proximal femurs, osteopenia 2020 DEXA M84.30XA Stress fracture, unspecified site, initial encounter for fracture M89.9 Disorder of bone, unspecified M94.9 Disorder of cartilage, unspecified M85.89 Other specified disorders of bone density and structure, multiple sites. FINDINGS: This is a summary of bone density measurements performed on the lumbar spine and proximal femurs. LUMBAR SPINE (L1-L4) Bone Mineral Density: 1.174(g/cm2) *T-Score: ? -0.1 Trabecular bone score: 1.373 Trabecular bone T-score: -1.1 LUMBAR SPINE (A-P): Normal bone density of the lumbar spine. Moderate S-shaped scoliosis noted. PROXIMAL FEMURS Femoral Neck Mean Bone Mineral Density: 0.776(g/cm2) *T-Score: ? -1.9 Total Proximal Femoral Mean Bone Mineral Density: 0.789(g/cm2) *T-Score: ? -1.7 PROX. FEMURS (total mean): Osteopenia of the total hips and the femoral necks. No distortions and no significant asymmetries noted. Estimated body composition 30.3% fat 69.7% lean tissue. FRAX fracture risk of major osteoporotic fracture is 19% (16.7% adjusted for trabecular bones score) FRAX fracture risk of hip fracture is 8.5% (7.3% adjusted for trabecular bone score) No comparisons available. Procedure Note Vivek Bravo MD - 08/13/2023 DXA BONE DENSITY STANDARD EXAM SPINE + FEMUR W OR WO TBS A bone density study was performed: INDICATION: 72 year old female. Bilateral stress reactions basocervicalregion proximal femurs, osteopenia 2020 DEXA M84.30XA Stress fracture, unspecified site, initial encounter forfracture M89.9 Disorder of bone, unspecified M94.9 Disorder of cartilage, unspecified M85.89 Other specified disorders of bone density and structure, multiplesites. FINDINGS: This is a summary of bone density measurements performed on the lumbarspine and proximal femurs. LUMBAR SPINE (L1-L4) Bone Mineral Density: 1.174(g/cm2) *T-Score: -0.1 Trabecular bone score: 1.373 Trabecular bone T-score: -1.1 LUMBAR SPINE (A-P): Normal bone density of the lumbar spine. ModerateS-shaped scoliosis noted. PROXIMAL FEMURS Femoral Neck Mean Bone Mineral Density: 0.776(g/cm2) *T-Score: -1.9 Total Proximal Femoral Mean Bone Mineral Density: 0.789(g/cm2) *T-Score: -1.7 PROX. FEMURS (total mean): Osteopenia of the total hips and the femoralnecks. No distortions and no significant asymmetries noted. Estimated body composition 30.3% fat 69.7% lean tissue. FRAX fracture risk of major osteoporotic fracture is 19% (16.7% adjustedfor trabecular bones score) FRAX fracture risk of hip fracture is 8.5% (7.3% adjusted for trabecularbone score) No comparisons available. IMPRESSION: Normal bone density of the lumbar spine. Osteopenia of the hips. Final report signed by Vivek Bravo MD Reminder to Patients and Legally Authorized Representatives: Language in this report is designed for medical communication with othertreating physicians and clinical practitioners. Please speak with your provider(s) about any questions or concernsrelated to the content of this report. AF^0 Salima Medley [facility] [place]XA PROCED[place] Final Result * Fecal immunochemical Hb (10/23/2022 11:11 AM EDT) Fecal Immunochemical Hemoglobin Negative Negative 10/24/2022 10:16 AM EDT [facility] Comment:This is a screening test for colorectal cancer or gastrointestinal bleed. This test has 97% specificity for detection of lower gastrointestinal bleeding in colorectal cancer. This test will not detect upper gastrointestinal bleeding. Stool Anal structure / Unknown Non-blood Collection / Unknown 10/23/2022 11:11 AM EDT 10/23/2022 11:11 AM EDT Salima Medley LAB BODY FLUIDS AND STOOLS ORDER ASTER Final Result [facility] [address] [place] [address], [place] [phone] from Last 3 Months or Most Recently Relevant to Health Maintenance Insurance Care Teams Public Health Microbiologist Relationship Specialty Start Date End Date Salima Medley [address] [place] [address] [facility] [id number] PCP - General Internal Medicine 08/20/22 Salima Medley [address] [facility] [place] [address] PCP - Insurance Payer PCP 03/13/24
--- OUTSIDE RECORDS SUMMARY | 2024-07-30 11:41 | XMS_ITS | Encounter Summary ---
Author Organization [facility] Address [address] [place] [address] Care Team Providers Care Outdoor Education Teacher Name Role Phone Bhavesh Marie MD Primary Care Provider [phone] Reason for Referral * Imaging (Routine) - Closed Specialty Diagnoses / Procedures Referred By Contac t Referred To Contact Diagnostic Radiology Procedures CT Thoracic Lumbar Spine wo IV Contrast () Albaro Santos MD [address] [place] [address] Phone: tel: fax: Referral ID Status Reason Start Date Expiration Date Visits Re quested Visits Authorized [id number] Closed 10/07/2018 10/07/2019 1 1 Encounter Details Date Type Department Care Team (Late st Contact Info) Description 10/07/2018 Scanned Document [facility] [address] [place] [address] Albaro Santos MD [address] [place] [phone] Social History Tobacco Use Types Packs/Day Years Used Date Smoking Tobacco: Never Assessed Comments Unknown Sex and Gender Information Value Date Recorded Sex Assigned at Not on file Legal Sex Female 1:32 PM EDT Gender Identity Not on file Sexual Orientation Not on file documented as of this encounter Plan of Treatment Not on file documented as of this encounter Procedures Procedure Name Priority Date/Time Associated Diagnosis Comments CT THORACIC LUMBAR SPINE WO IV CONTRAST ([facility]) Routine 09/29/2018 documented in this encounter Results * CT Thoracic Lumbar Spine wo IV Contrast () (09/29/2018) Anatomical Region Laterality Modality Spine, T-spine, L-spine, Ortho Spine Computed Tomography Albaro Santos MD IMG CT ORDERABLES Final Res ult documented in this encounter Visit Diagnoses Not on filedocumented in this encounter Care Teams Outdoor Education Teacher Relationship Specialty Start Date End Date Bhavesh Marie MD [address] [place] [phone] PCP - General Internal Medicine 11/15/16 documented as of this encounter
--- OUTSIDE RECORDS SUMMARY | 2024-07-30 11:41 | XMS_ITS | Encounter Summary ---
Author Organization [facility] and [facility] Address [address] [place] [address] Care Team Providers Care Paper Gluing Operator Name Role Phone Bhavesh Marie MD Primary Care Provider Encounter Details Date Type Department Care Team (Late st Contact Info) Description 09/30/2018 Scanned Document [facility] [address] [place] [address] Provider, Historical . Social History Tobacco Use Types Packs/Day Years [...] Procedure Name Priority Date/Time Associated Diagnosis Comments MRI RESULT SCAN Routine 09/28/2018 documented in this encounter Results * MRI Result Scan (09/28/2018) us Historical Provider IMG SCAN REPORTS Final Resul t documented in this encounter Visit Diagnoses Not on filedocumented in this encounter Care Teams Paper Gluing Operator Relationship Specialty Start Date End Date Bhavesh Marie MD [address] [place] [address] PCP - General Internal Medicine 11/15/16 documented as of this encounter
--- OUTSIDE RECORDS SUMMARY | 2024-07-30 11:41 | XMS_ITS | Encounter Summary ---
Author Organization [facility] Address [address] [place] [address] Care Team Providers Care Information Clerk [employer]obile [employer] Name Role Phone Salima Medley Primary Care Provider Ximena Hollis MD Unavailable Salima Medley Unavailable Encounter Details Date Type Department Care Team (Late st Contact Info) Description 08/26/2023 Orders Only [facility] Department of X-ray Imaging [address] [facility] [place] [address] Vivek Bravo MD [address] [facility] [place] [phone] Social History Tobacco Use Types Packs/Day Years Used Date Smoking Tobacco: Former Cigarettes 0.5 15.1 0 09/15/1971 - 10/12/1986 Smokeless Tobacco: Never Alcohol Use Standard Drinks/Week Comments Yes 1 (1 standard drink = 0.6 oz pure alcohol) red wine & chocolate for desert PHQ-2 Answer Date Recorded PHQ-2 Score 2 08/20/2022 Hunger Vital Sign Answer Date Recorded Within the past 12 months, y ou worried that your food would run out before you got the money to buy more. Never true 10/18/19 23 Ran Out of Food in the Last Year Not on file 10/17/2022 PRAPARE - Transportation Answer Date Re corded In the past 12 months, has l ack of transportation kept you from medical appointments or from getting medications? No 10/17/2022 Lack of Transportation (Non-Medical) Not on file 10/17/2022 Comments Unknown Sex and Gender Information Value [...] suspected to have Coronavirus/COVID-19? No / Unsure 08/18/2023 9:18 AM EDT documented as of this encounter Plan of Treatment Upcoming Encounters Date Type Department Care Team (Late st Contact Info) Description 08/24/2024 11:20 AM EDT Office Visit [facility] [address] [place] [phone] Salima Medley [address] [place] [address] 06/21/2025 8:40 AM EDT Office Visit [facility] Department of Internal Medicine [address] [place] [phone] Salima Medley [address] [place] [address] documented as of this encounter Visit Diagnoses Not on filedocumented in this encounter Additional Health Concerns Assessment Noted Time PHQ-9 Depression Total Score: 2 08/21/19 10:37 AM EDT documented as of this encounter Care Teams Information Clerk [employer]obile [employer] Relationship Specialty Start Date End Date Salima Medley [address] [place] [address] [place] [address] PCP - General Internal Medicine 08/20/22 Ximena Hollis MD [address] [place] [address] [place] [address] PCP - Insurance Payer PCP 07/03/23 Salima Medley [address] [facility] [place] [address] PCP - Insurance Payer PCP 03/13/24 documented as of this encounter
--- OUTSIDE RECORDS SUMMARY | 2024-07-30 11:41 | XMS_ITS | Encounter Summary ---
Author Organization [facility] Address [address] [place] [address] Care Team Providers Care Lock Corner Machine Operator Name Role Phone Bhavesh Marie MD Primary Care Provider [phone] Bhavesh Marie MD Unavailable [phone] Bhavesh Marie MD Unavailable [phone] Ximena Hollis MD Unavailable [phone] Encounter Details Date Type Department Care Team (Late st Contact Info) Description 04/09/2002 Scanned Document [address] [place] [phone] Provider, Generic Social History Tobacco Use Types Packs/Day Years Used Date Smoking Tobacco: Never Assessed Comments Unknown Sex and Gender Information Value Date Recorded Sex Assigned at Female 05/24/2024 3:07 PM EST Legal Sex Female 5:08 PM EDT Gender Identity Female 05/24/2024 3:07 PM EST Sexual Orientation Heterosexual (straight) 05/24 3:07 PM EST documented as of this encounter Plan of Treatment Not on file documented as of this encounter Procedures Procedure Name Priority Date/Time Associated Diagnosis Comments PATHOLOGY SURGERY 04/09/2002 documented in this encounter Results * PATHOLOGY SURGERY (04/09/2002) Narrative 04/09/2002 Ordered by an unspecified provider. us Generic Provider [facility] HX PATH PROCEDURES Final Re sult documented in this encounter Visit Diagnoses Not on filedocumented in this encounter Care Teams Lock Corner Machine Operator Relationship Specialty Start Date End Date Bhavesh Marie MD PCP - General Cardiovascular Disease 08/28/15 Bhavesh Marie MD [address] [place] [address] PCP - [employer] Attributed 01/12/19 09/12/19 Bhavesh Marie MD [address] [place] [address] PCP - APNCT [employer] Attributed 04/14/22 08/11/22 Ximena Hollis MD [address] [place] [address] PCP - APNCT [employer] Attributed 08/12/22 02/12/24 documented as of this encounter
--- OUTSIDE RECORDS SUMMARY | 2024-07-30 11:41 | XMS_ITS | Encounter Summary ---
Author Organization [facility] Address [address] [place] [address] Care Team Providers Care Wound/Ostomy Nurse Name Role Phone Bhavesh Marie MD Primary Care Provider [phone] Bhavesh Marie MD Unavailable [phone] Bhavesh Marie MD Unavailable [phone] Ximena Hollis MD Unavailable [phone] Encounter Details Date Type Department Care Team (Late st Contact Info) Description 10/06/2002 Scanned Document [address] [place] [phone] Provider, Generic Social History Tobacco Use Types [...] Name Priority Date/Time Associated Diagnosis Comments PATHOLOGY BREAST 10/06/2002 documented in this encounter Results * PATHOLOGY BREAST (10/06/2002) Narrative 10/06/2002 Ordered by an unspecified provider. us Generic Provider [facility] HX PATH PROCEDURES Final Re sult documented in this encounter Visit Diagnoses Not on filedocumented in this encounter Care Teams Wound/Ostomy Nurse Relationship Specialty Start Date End Date Bhavesh Marie MD PCP - General Cardiovascular Disease 08/28/15 Bhavesh Marie MD [address] [place] [place] [address] PCP - [employer] Commercial Attributed 01/12/19 09/12/19 Bhavesh Marie MD [address] [place] [address] PCP - APNCT [employer] Attributed 04/14/22 08/11/22 Ximena Hollis MD [address] [place] [address] PCP - APNCT [employer] Attributed 08/12/22 02/12/24 documented as of this encounter
--- OUTSIDE RECORDS SUMMARY | 2024-07-30 11:41 | XMS_ITS ---
Author Name [facility] Organization Unknown Results Test Name/Text Value Interpretation Date Range Source CREAT SERPL [facility]NC 0.6mg/dL Normal [id number] 0.5 - 1 [facility] BILIRUB SERPL [facility] 0.5mg/dL Normal [id number] 0.3 - 1 [facility] AST SERPL [facility] 23U/L Normal [id number] 5 - 40 CT [facility] Glomerular filtration rate/1.73 sq M. predicted 95 Normal [id number] 60 - [facility] HCO3 SER SCNC 30mmol/L Normal [id number] 24 - 32 CTT [facility] POTASSIUM SERPL SCNC 3.9mmol/L Normal [id number] 3.5 - 5.1 [facility] ANION GAP SERPL SC[facility] 9mmol/L Normal [id number] 5 - 14 [facility] PROT SERPL [facility] 7g/dL Normal [id number] 6.4 - 8.5 C [facility] CALCIUM SERPL [facility] 9.8mg/dL Normal [id number] 8.4 - 10 .2 [facility] ALP SERPL-CCNC 50U/L Normal [id number] 34 - 104 [facility] SODIUM SERPL SC[facility] 136mmol/L Normal [id number] 135 - 145 [facility] GLUCOSE SERPL [facility] 85mg/dL Normal [id number] 70 - 199 [facility] ALBUMIN SERPL BCG MCNC 4.7g/dL Normal [id number] 3.5 - 5 [facility] CHLORIDE SERPL SC[facility] 97mmol/L Below low normal [id number] 98 - 107 [facility] ALT SERPL [facility] 14U/L Normal [id number] 7 - 52 [facility] BUN SERPL [facility] 14mg/dL Normal [id number] 7 - 17 [facility] NEUTROPHILS NFR BLD AUTO 27.8% Below low normal [id number] 44 - 74 [facility] BASOPHILS NFR BLD AUTO 0.8% Normal [id number] 0 - 2 [facility] MONOCYTES NFR BLD AUTO 13.9% Above high normal [id number] 2 - 12 [facility] HCT VFR BLD AUTO 37.4% Normal [id number] 37 - 47 [facility] MONOCYTES NO. BLD AUTO 0.4K/uL Normal [id number] 0 - 0.8 [facility] RDW RBC AUTO RTO 12.4% Normal [id number] 12.1 - 16. 2 [facility] PLATELET NO. BLD AUTO 185K/uL Normal [id number] 150 - 450 [facility] EOSINOPHIL NO. BLD AUTO 0K/uL Normal [id number] 0 - 0.5 [facility] RBC NO. BLD AUTO 4.11M/uL Below low normal [id number] 4.2 - 5.4 [facility] MCH RBC QN AUTO 31.7pg Normal [id number] 25 - 33 C [facility] MCHC RBC AUTO MCNC 34.8g/dL Normal [id number] 32 - 36 [facility] HGB BLD [facility] 13g/dL Normal [id number] 12.5 - 16 [facility] BASOPHILS IN BLOOD BY AUTOMATED COUNT 0K/uL Normal [id number] 0 - 0.2 [facility] WBC NO. BLD AUTO 3.1K/uL Below low normal [id number] 4 - 10.5 [facility] EOSINOPHIL NFR BLD AUTO 0.8% Normal [id number] 0 - 6 [facility] LYMPHOCYTES NFR BLD AUTO 56.7% Above high normal [id number] 20 - 48 [facility] MCV RBC AUTO 91fL Normal [id number] 78 - 100 [facility] NEUTROPHILS NO. BLD AUTO 0.9K/uL Below low normal [id number] 1.8 - 7.8 [facility] LYMPHOCYTES NO. BLD AUTO 1.7K/uL Normal [id number] 1 - 3.2 [facility] PMV BLD AUTO 7.5fL Normal [id number] 7.4 - 11.4 CTT [facility] MISC1 Normal [id number] [facility] H FECAL IMMUNOCHEMICAL HB (QUALITATIVE INTERPRETATION) Negative Normal [id number] - [facility] History of Medication Use Medication Directions Dispensed Refills Start Date End Date [facility] prucalopride (MOTEGRITY) 1 mg tablet Take 1 tablet (1 mg total) by mouth in the morning. 06/17/2024 active amLODIPine (NORVASC) 5 mg tablet Take 1 tablet (5 mg total) by mouth in the morning. 06/17/2024 active traZODone (DESYREL) 50 MG tablet trazodone 50 mg tablet TAKE 1 TABLET BY MOUTH EVERYDAY AT BEDTIME 07/15/2022 active meloxicam (MOBIC) 15 mg tablet TAKE 1 TABLET BY MOUTH EVERY DAY NEEDED WITH FOOD 03/29/2023 active estradioL (ESTRACE) 0.01 % (0.1 mg/gram) vaginal cream estradiol 0.01% (0.1 mg/gram) vaginal cream APPLY 1 GRAM VAGINALLY 2 TIMES A WEEK active aripiprazole 2 mg tablet TAKE 1 TABLET BY MOUTH EVERY DAY 4 completed Amitiza 24 mcg capsule active SODIUM FLUORIDE, DENTAL GEL, 1.1 % GEL PreviDent 5000 Booster Plus 1.1 % dental paste active oxyCODONE (ROXICODONE) 15 MG immediate release tablet TAKE 1 TABLET EVERY 4 TO 6 HOUS NEEDED. MAX 5 PER DAY 09/09/2022 4 active rosuvastatin (CRESTOR) 40 mg tablet 06/15/2022 3 active lisinopriL (PRINIVIL) 20 mg tablet TAKE 2 TABLETS BY MOUTH IN THE MORNING 06/13/2023 4 active naloxone 4 mg/actuation nasal spray USE DIRECTED NEEDED ACCIDENTAL OVERDOSE USE DIRECTED NEEDED ACCIDENTAL OVERDOSE completed diclofenac 1 % topical gel APPLY TO THE AFFECTED AREA 3 TO 4 TIMES DAILY DIRECTED BY MD APPLY TO THE AFFECTED AREA 3 TO 4 TIMES DAILY DIRECTED BY MD completed ARIPiprazole (ABILIFY) 5 mg tablet Take 5 mg by mouth in the morning. 04/17/2023 4 active ezetimibe 10 mg tablet TAKE 1 TABLET BY MOUTH EVERY EVENING TAKE 1 TABLET BY MOUTH EVERY EVENING complete d loratadine 10 mg capsule Take 10 mg by mouth in the morning and 10 mg before bedtime. active oxyCODONE (ROXICODONE) 15 mg immediate release tablet TAKE 1 TABLET BY MOUTH EVERY 4 TO 6 HOURS NEEDED FOR PAIN MAX 5/DAY 08/12/2022 4 active meloxicam 15 mg tablet TAKE 1 TABLET BY MOUTH EVERY DAY NEEDED WITH FOOD active rosuvastatin 40 mg tablet active meloxicam (MOBIC) 15 MG tablet TAKE 1 TABLET BY MOUTH EVERY DAY NEEDED WITH FOOD 03/29/2023 active traZODone (DESYREL) 50 mg tablet TAKE 1 TABLET BY MOUTH EVERYDAY AT BEDTIME 07/15/2022 active progesterone (PROMETRIUM) capsule 200 mg active ezetimibe (ZETIA) 10 mg tablet ezetimibe 10 mg tablet TAKE 1 TABLET BY MOUTH EVERY EVENING 3 active lisinopriL (PRINIVIL) 5 mg tablet lisinopril 5 mg tablet 3 aborted gabapentin (NEURONTIN) 300 MG capsule Take 1 capsule (300 mg total) by mouth 3 (three) times a day. 05/16/2023 active tretinoin (RETIN-A) 0.05 % cream Apply topically. active None recorded. (No additional sig information) completed tretinoin (RETIN-A) 0.05 % cream Apply topically nightly. active Linzess 145 mcg capsule Take 1 capsule (145 mcg total) by mouth Daily before breakfast. 12/30/2023 4 active azelaic acid 15 % cream azelaic acid 15 % topical gel APPLY TO TO THE AFFECTED AREA TWICE DAILY 4 active ezetimibe (ZETIA) tablet 10 mg Take 1 tablet (10 mg total) by mouth every night at bedtime. active diazepam 10 mg tablet TAKE TAKE 1 TABLET BY MOUTH 30MIN PRIOR TO PROCEDURE NEEDED AND BRING OTHER TAB WITH YOU active aripiprazole 5 mg tablet TAKE 1 TABLET (5 MG TOTAL) BY MOUTH DAILY. active alendronate 70 mg tablet TAKE ONE TABLET BY MOUTH ONCE WEEKLY. TAKE 1ST THING IN AM W/ A GLASS OF WATER. NOTHING TO EAT OR DRINK FOR 1/2 HR. DO NOT LIE DOWN AFTER TAKING TAKE ONE TABLET BY MOUTH ONCE WEEKLY. TAKE 1ST THING IN AM W/ A GLASS OF WATER. NOTHING TO EAT OR DRINK FOR 1/2 HR. DO NOT LIE DOWN AFTER TAKING completed venlafaxine ER 37.5 mg capsule,extended release 24 hr TAKE 1 CAPSULE BY MOUTH EVERY DAY 4 completed fluoride, sodium, 1.1 % gel PreviDent 5000 Booster Plus 1.1 % dental paste 4 active sertraline (ZOLOFT) 50 MG tablet Take 100 mg by mouth daily. active PreviDent 5000 Booster Plus 1.1 % dental paste PreviDent 5000 Booster Plus 1.1 % dental paste completed sertraline 100 mg tablet TAKE 1 AND 1/2 TABLETS BY MOUTH AT BEDTIME TAKE 1 AND 1/2 TABLETS BY MOUTH AT BEDTIME completed lisinopriL (PRINIVIL,ZESTRIL) 20 mg tablet Take 2 tablets (40 mg total) by mouth 1 (one) time each day. active progesterone (PROMETRIUM) 200 mg capsule active acetaminophen (TYLENOL) 325 MG tablet Take 2 tablets (650 mg total) by mouth 4 times daily (every 6 hours) as needed for mild pain. 03/30/2020 active Azelastine-Fluticas one (Dymista) 137-50 MCG/ACT Suspension into each nostril as needed. active tamoxifen (NOLVADEX) 20 mg chemo tablet Take 20 mg by mouth in the morning. 08/08/2022 active lisinopril (PRINIVIL,ZESTRIL) tablet 10 mg Take 2.5 tablets (25 mg total) by mouth daily. 4 aborted lisinopril (PRINIVIL,ZESTRIL) tablet 30 mg lisinopril 30 mg tablet 08/23/2022 4 aborted oxycodone 15 mg tablet TAKE 1 TABLET BY MOUTH EVERY 4 HOURS TO 6 HOURS NEEDED MAX 5 TABLETS A DAY 4 completed venlafaxine ER 75 mg capsule,extended release 24 hr TAKE 1 CAPSULE (75 MG TOTAL) BY MOUTH DAILY. TAKE WITH 150 MG 4 completed Loratadine 10 MG CAPS Take by mouth daily. active azelastine 137 mcg (0.1 %) nasal spray aerosol USE 2 SPRAYS IN EACH NOSTRIL TWICE DAILY USE 2 SPRAYS IN EACH NOSTRIL TWICE DAILY completed gabapentin (NEURONTIN) 300 MG capsule 12/30/2022 4 aborted Fluzone High-Dose (PF) 180 mcg/0.5 mL intramuscular syringe Fluzone High-Dose (PF) 180 mcg/0.5 mL intramuscular syringe completed oxyCODONE (ROXICODONE) 15 mg immediate release tablet active Problems Problem Status Onset Date Problem Type Date of Resolution Source Spinal stenosis of lumbar region with neurogenic claudication active EncounterDiagnosisAct [facility] Essential hypertension active ProblemAct [facility] Family history of neoplasm of ovary active ProblemAct [facility] Disorder of bone and articular cartilage active ProblemAct [facility] Essential hypertension active ProblemAct [facility] Age-related osteoporosis without current pathological fracture active ProblemAct [facility] Scoliosis, or kyphoscoliosis, idiopathic active ProblemAct [facility] Allergic rhinitis active ProblemAct [facility] History of vertebral compression fracture active ProblemAct [facility] Malignant tumor of breast active ProblemAct [facility] Hypercholesteremia active ProblemAct [facility] Gluteal pain active ProblemAct [facility] Atypical ductal hyperplasia of breast active ProblemAct [facility] Lobular carcinoma in situ (LCIS) of right breast active ProblemAct [facility] Osteopenia active ProblemAct [facility] Depressive disorder active ProblemAct [facility] JESÚS (generalized anxiety disorder) active ProblemAct [facility] Recurrent major depressive disorder, in partial remission active ProblemAct [facility] History of lobular carcinoma in situ (LCIS) of breast active ProblemAct [facility] History of reconstruction of left breast active ProblemAct [facility] History of left breast cancer active ProblemAct [facility] Atypical ductal hyperplasia of right breast active ProblemAct [facility] Encounter for long-term (current) use of high-risk medication active ProblemAct [facility] Pure hypercholesterolemia active ProblemAct [facility] History of left mastectomy active ProblemAct [facility] Chronic constipation active 2024-12- 23 ProblemAct ENS_PHCCT Pure hypercholesterolemia active ProblemAct [facility] Disorder of bone and articular cartilage active ProblemAct [facility] Osteopenia active ProblemAct [facility] Depressive disorder active ProblemAct [facility] Idiopathic scoliosis AND/OR kyphoscoliosis active ProblemAct [facility] Allergic rhinitis active ProblemAct [facility] Atypical ductal hyperplasia of breast active ProblemAct [facility] Menopausal syndrome active ProblemAct [facility] Atypical ductal hyperplasia of right breast active EncounterDiagnosisAct [facility] RAN Malignant tumor of breast active ProblemAct [facility] Acquired scoliosis active ProblemAct [facility] Immunizations Vaccine Date Source Lot Number Status Influenza, Quadrivalent 03/26/2018 [facility] [id number] ompleted Shingrix (Zoster Recombinant) 02/25/2022 [facility] [id number] completed Influenza Vaccine 65y and older 03/19/2021 [facility] [id number] completed Tdap 04/28/2016 [facility] GS22H completed Influenza, Quadrivalent 03/21/2017 [facility] [id number] c ompleted COVID-19 MRNA (MODERNA) 06/07/2020 [facility] [id number] c ompleted Pneumococcal Polysaccharide PCV-23 03/17/2019 [facility] S [id number] completed COVID-19 MRNA MODERNA BIVALENT 02/25/2022 [facility] 052D2 2A completed Pneumococcal Polysaccharide PCV-23 04/28/2016 [facility] M [id number] completed Influenza, Quadrivalent 04/28/2016 [facility] A2Z34 c ompleted Influenza Vaccine 65y and older 03/17/2019 [facility] UJ31 0AA completed Influenza vaccine, quadrival ent, adjuvanted - ML 03/19/2021 CTP [id number] completed Influenza, injectable, MDCK, preservative free, quadrivalent - ML 03/21/2017 [facility]P [id number] complete d COVID-19 MRNA (MODERNA) 12/29/2020 [facility] [id number] c ompleted influenza, injectable, quadr ivalent, preservative free - ML 04/28/2016 [facility] A2Z34 completed Influenza Vaccine 65y and older 03/15/2022 [facility] UJ93 5AC completed Covid-19 (Moderna 12+) 100mcg/0.5mL dosage 07/10/2020 [facility] [id number] completed Influenza Inactivated/Split Preservative Free IM 03/26/2018 CCT [id number] completed influenza, high dose seasonal - ML [facility]/17/[id number] completed Encounters Encounter Type Encounter Reason Primary Diagnosis Location Date Ambulatory Follow-up Follow-up [facility] 07/15/2024 Ambulatory Spinal stenosis, lumbar region with neur Spinal stenosis, lumbar region with neurogenic claudication [facility] 07/13/2024 Ambulatory Spinal stenosis, lumbar region with neur Spinal stenosis, lumbar region with neurogenic claudication [facility] 07/13/2024 Ambulatory Spinal stenosis, lumbar region with neur Spinal stenosis, lumbar region with neurogenic claudication [facility] 07/13/2024 Ambulatory Spinal stenosis, lumbar region with neur Spinal stenosis, lumbar region with neurogenic claudication [facility] 07/13/2024 Ambulatory [facility] 06/22/2024 Ambulatory [facility] 06/21/2024 Ambulatory Spinal stenosis, lumbar region with neur Spinal stenosis, lumbar region with neurogenic claudication [facility] 06/21/2024 Ambulatory [facility] 06/19/2024 Ambulatory Encounter for general adult medical exam Encounter for general adult medical examination without abnormal findings [facility] 06/17/2024 Ambulatory [facility] 05/17/2024 Ambulatory [facility] 04/05/2024 Ambulatory [facility] 04/04/2024 Ambulatory [facility] 04/04/2024 Ambulatory [facility] 04/04/2024 Ambulatory [facility] 03/20/2024 Ambulatory [facility] 03/20/2024 Ambulatory Other [facility]24 Ambulatory Unspecified lump in the right breast, overlapping quadrants Unspecified lump in the right breast, overlapping quadrants [facility] 03/08/2024 Ambulatory Unspecified lump in the right breast, overlapping quadrants Unspecified lump in the right breast, overlapping quadrants [facility] 03/08/2024 Ambulatory Follow-up Encounter for screening mammogram for malignant neoplasm of breast [facility] 02/26/2024 Ambulatory Family history of malignant neoplasm of ovary Family history of malignant neoplasm of ovary [facility] 02/26/2024 Ambulatory Pain in right hip Pain in right hip [facility] 12/18/2023 Ambulatory Unspecified benign mammary dysplasia of right breast Unspecified benign mammary dysplasia of right breast [facility] 10/10/2023 Ambulatory Malignant neoplasm of lower-inner quadrant of right female breast Malignant neoplasm of lower-inner quadrant of right female breast [facility] 10/10/2023 Ambulatory Unspecified benign mammary dysplasia of right breast Unspecified benign mammary dysplasia of right breast [facility] 09/16/2023 Ambulatory Spinal stenosis, lumbar region with neur Spinal stenosis, lumbar region with neurogenic claudication [facility] 09/04/2023 Ambulatory [facility] 09/01/2023 Ambulatory Personal history of (healed) traumatic f Personal history of (healed) traumatic fracture [facility] 09/01/2023 Ambulatory Pain Pain [facility] 08/18/2023 Ambulatory Stress fracture, unspecified site, initi Stress fracture, unspecified site, initial encounter for fracture [facility] 08/13/2023 Ambulatory Disorder of bone, unspecified Disorder of bone, unspecified [facility] 07/31/2023 Ambulatory Disorder of bone, unspecified Disorder of bone, unspecified [facility] 07/31/2023 Ambulatory Age-related osteoporosis without current Age-related osteoporosis without current pathological fracture [facility] 07/31/2023 Ambulatory Infantile idiopathic scoliosis, thoracol Infantile idiopathic scoliosis, thoracolumbar region [facility] 07/30/2023 Ambulatory Spinal stenosis, lumbar region with neur Spinal stenosis, lumbar region with neurogenic claudication [facility] 07/30/2023 Ambulatory Pain in right hip Pain in right hip [facility] 07/23/2023 Ambulatory Pain in right hip Pain in right hip [facility] 07/10/2023 Ambulatory Pain in right hip Pain in right hip [facility] 07/10/2023 Ambulatory Spinal stenosis, lumbar region with neur Spinal stenosis, lumbar region with neurogenic claudication [facility] 07/07/2023 Ambulatory Family history of malignant neoplasm of ovary Family history of malignant neoplasm of ovary [facility] 05/09/2023 Ambulatory Unspecified benign mammary dysplasia of right breast Unspecified benign mammary dysplasia of right breast [facility] 05/09/2023 Ambulatory [facility] 02/18/2023 Ambulatory Spinal stenosis, lumbar region with neur Spinal stenosis, lumbar region with neurogenic claudication [facility] 01/22/2023 Ambulatory Spinal stenosis, lumbar region with neur Spinal stenosis, lumbar region with neurogenic claudication [facility] 12/17/2022 Ambulatory [facility] 12/17/2022 Ambulatory Spinal stenosis, lumbar region with neur Spinal stenosis, lumbar region with neurogenic claudication [facility] 12/17/2022 Ambulatory Anesthesia of skin [facility] 09/2022 Ambulatory Essential (prima ry) hypertension [facility] 10/17/2022 [facility]ulatory [facility] 08/20/2022 Ambulatory [facility] 08/16/2022 Ambulatory Mammographic calcification found on diagnostic imaging of breast [facility] 10/02/2021 Ambulatory [facility] 07/02/2021 Care Team Organization Name Specialty Phone Email Start Date End [facility], 06/23/2024 [facility] Salima Medley Primary Care 02/28/2024 [facility] Salima Medley Primary Care 02/26/2024 [facility] 10/12/2023 [facility] 04/15 [facility] Carla Marie Primary Care 05/09/2023 [facility] answer Patient Primary Care 02/19/2023 05/30/19 25 [facility] Patient answer Primary Care 02/18/2023 11/0 10/2022 [facility] 02/13/2023 024 [facility] 01/03/2023 024 [facility] SALIMA MEDLEY Primary Care 08/20/2022 [facility] SALIMA MEDLEY Primary Care 08/20/2022 08/20/2022 [facility] Primary Care Salima Medley Primary Care 08/20/2022 [facility] CARLA MARIE Primary Care 10/05/2021 [facility] CARLA MARIE Primary Care 10/02/2021 10/02/2021 [facility] 07/03/2021 [facility] 07/02/2021 07/02/2021 [facility], [facility] Primary Care 01/04/2021 12/01/2023
--- OUTSIDE RECORDS SUMMARY | 2024-07-30 11:41 | XMS_ITS | Clinical Summary ---
Author Organization [address] Address [address] [place] [id number] Phone Care Team Providers Care Route Process Administrator Name Role Phone Bhavesh Marie MD Primary Care Provider [phone] Allergies Active Allergy Reactions Criticality Noted Date Comments Environmental Allergies 09/15/2018 Mold Medications buPROPion (WELLBUTRIN XL) 300 MG 24 hr tablet Take 300 mg by mouth Every morning @0700 Active lisinopril (PRINIVIL,ZESTR IL) 10 MG tablet Take 25 mg by mouth daily Active rosuvastatin (CRESTOR) 40 MG tablet Take 40 mg by mouth daily Active fexofenadine (IESHA) 180 MG tabletIndicatio ns:allergic rhinitis Take 180 mg by mouth daily Active oxyCODONE (OXYCONTIN) 10 MG 12 hr tablet Take 10 mg by mouth every 12 (twelve) hours Active Active Problems No known active problems Immunizations Name Administration Dates Next Due Pneumococcal polysaccharide PPSV23 04/28/2016 Social History Tobacco Use Types Packs/Day Years Used Date Smoking Tobacco: Never Assessed Comments Unknown Sex and Gender Information Value Date Recorded Sex Assigned at Not on file Legal Sex Female 1:32 PM EDT Gender Identity Not on file Sexual Orientation Not on file Last Filed Vital Signs Vital Sign Reading Time Taken Comments Blood Pressure 137/91 10/07/2018 10:34 AM EDT Pulse 100 10/07/2018 10:34 AM EDT Temperature - - Respiratory Rate - - Oxygen Saturation - - Inhaled Oxygen Concentration - - Weight - - Height - - Body Mass Index - - Plan of Treatment Health Maintenance Due Date Last Done Comments HIV screening 10/05/1963 Hepatitis C screening 1968 Lipid disorder screening 1990 Colon cancer screening, Colonoscopy 10/05/1995 Diabetes screening 10/05/1995 Pneumococcal Vaccine (50+ years) (2 of 2 - PCV) 03/17/2020 03/17/2019, 04/28/2016 Shingles vaccine (Shingrix) (2 of 2 - Shingrix (RZV) 2 Dose Standard Series) 04/27/2022 02/25/2022 Breast cancer screening 09/19/2023 09/19/19 22, 06/28/2021, 06/28/2021, Additional history exists Covid-19 vaccine series ( season) 2023 02/25/2022, 12/29/2020, 07/10/2020, Additional history exists Influenza vaccine 12/13/2024 03/15/2022, , 03/19/2021, Additional history exists RSV Immunization (1 - 1-dose 75+ series) 2025 Tetanus adult (Td q 10,TDAP once) 04/28/2026 04/28/2016 Osteoporosis screening (bone density) Completed 08/13/2023, 08/13/2023 Cervical cancer screening Discontinued Meningococcal Vaccine Aged Out No sena walter eligible based on patient's age to complete this topic Procedures Procedure Name Priority Date/Time Associated Diagnosis Comments MAMMOGRAPHY RESULT SCAN Routine 09/29/2018 from Last 3 Months or Most Recently Relevant to Health Maintenance Results * Mammography Result Scan (09/29/2018) us Historical Provider IMG SCAN REPORTS Final Resul t from Last 3 Months or Most Recently Relevant to Health Maintenance Insurance [place] [id number] [place] [id number] [employer] CIG[place] Care Teams Route Process Administrator Relationship Specialty Start Date End Date Bhavesh Marie MD [address] [place] [address] PCP - General Internal Medicine 11/15/16
--- OUTSIDE RECORDS SUMMARY | 2024-07-30 11:41 | XMS_ITS | Encounter Summary ---
Author Organization [facility] Address [address] [place] [address] Care Team Providers Care Licensed Physical Therapy Assistant Name Role Phone Bhavesh Marie MD Primary Care Provider Encounter Details Date Type Department Care Team (Late st Contact Info) Description 10/05/2018 Scanned Document [facility] [address] [place] [address] Provider, Historical . Social History Tobacco Use [...] Diagnosis Comments MAMMOGRAPHY RESULT SCAN Routine 09/29/2018 documented in this encounter Results * Mammography Result Scan (09/29/2018) us Historical Provider IMG SCAN REPORTS Final Resul t documented in this encounter Visit Diagnoses Not on filedocumented in this encounter Care Teams Licensed Physical Therapy Assistant Relationship Specialty Start Date End Date Bhavesh Marie MD [address] [place] [phone] PCP - General Internal Medicine 11/15/16 documented as of this encounter
--- OUTSIDE RECORDS SUMMARY | 2024-07-30 11:41 | XMS_ITS | Encounter Summary ---
Author Organization [facility], Located Within [facility] Address [address] [place] [address] Care Team Providers Care Loss Control Engineer Name Role Phone Bhavesh Marie MD Primary Care Provider Bhavesh Marie MD Unavailable [phone] Bhavesh Marie MD Unavailable [phone] Ximena Hollis MD Unavailable [phone] Encounter Details Date Type Department Care Team (Late st Contact Info) Description 08/08/2006 Scanned Document [address] [place] [address] [phone] Provider, Generic Social History Tobacco Use Types [...] on file documented as of this encounter Visit Diagnoses Not on filedocumented in this encounter Care Teams Loss Control Engineer Relationship Specialty Start Date End Date Bhavesh Marie MD PCP - General Cardiovascular Disease 08/28/15 Bhavesh Marie MD [address] [place] [address] PCP - [employer] Attributed 01/12/19 09/12/19 Bhavesh Marie MD [address] [place] [address] PCP - APNCT [employer] Attributed 04/14/22 08/11/22 Ximena Hollis MD [address] [place] [address] PCP - APNCT [employer] Attributed 08/12/22 02/12/24 documented as of this encounter
--- OUTSIDE RECORDS SUMMARY | 2024-07-30 11:41 | XMS_ITS | Clinical Summary ---
Author Organization [facility] Address [address] [place] [address] Phone Care Team Providers Care System Manager Name Role Phone Salima Medley DO Primary Care Provider [phone] Allergies Active Allergy Reactions Criticality Noted Date Comments House Dust Itching 1960 Other 09/15/2018 Mold Medications alendronate (FOSAMAX) 70 mg tablet Take 1 tablet (70 mg total) by mouth once a week. 2 Active azelastine (ASTELIN) 137 mcg (0.1 %) nasal spray Administer 2 sprays into affected nostril(s) 2 (two) times a day. 2 Active estradioL (ESTRACE) 0.01 % (0.1 mg/gram) vaginal cream estradiol 0.01% (0.1 mg/gram) vaginal cream APPLY 1 GRAM VAGINALLY 2 TIMES A WEEK Active ezetimibe (ZETIA) 10 mg tablet Take 1 tablet (10 mg total) by mouth at bedtime. Active gabapentin (NEURONTIN) 100 mg capsule Take 1 capsule (100 mg total) by mouth 3 (three) times a day. 3 Active lisinopriL (PRINIVIL,ZESTR IL) 20 mg tablet Take 2 tablets (40 mg total) by mouth 1 (one) time each day. Active loratadine 10 mg capsule Take by mouth 1 (one) time each day. Active meloxicam (MOBIC) 15 mg tablet TAKE 1 TABLET BY MOUTH EVERY DAY NEEDED WITH FOOD 3 Active naloxone (NARCAN) 4 mg/0.1 mL nasal spray USE DIRECTED NEEDED ACCIDENTAL OVERDOSE 3 Active progesterone (PROMETRIUM) 200 mg capsule Activ e rosuvastatin (CRESTOR) 40 mg tablet Take 1 tablet (40 mg total) by mouth at bedtime. Active tamoxifen (NOLVADEX) 20 mg chemo tablet Take 1 tablet (20 mg total) by mouth 1 (one) time each day 3 Active traZODone (DESYREL) 50 mg tablet trazodone 50 mg tablet TAKE 1 TABLET BY MOUTH EVERYDAY AT BEDTIME 3 Active tretinoin (RETIN-A) 0.05 % cream Apply topically. Active fluoride, sodium, 1.1 % gel Active oxyCODONE (ROXICODONE) 15 mg immediate release tablet Activ e gabapentin (NEURONTIN) 300 mg capsule Take 1 capsule (300 mg total) by mouth 3 (three) times a day. Active morphine (MSIR) 15 mg tablet TAKE 1 TABLET 1 HOUR BEFORE PROCEDURE NEEDED, BRING OTHER TAB WITH YOU 4 Active oxyCODONE-aceta minophen (PERCOCET) 5-325 mg per tablet Active venlafaxine XR (EFFEXOR-XR) 150 mg 24 hr capsule Take 1 capsule (150 mg total) by mouth 1 (one) time each day. With 75 mg daily 5 Active ARIPiprazole (ABILIFY) 2 mg tablet Take 1 tablet (2 mg total) by mouth 1 (one) time each day. 90 each 5 Active venlafaxine XR (EFFEXOR-XR) 75 mg 24 hr capsule Take 1 capsule (75 mg total) by mouth 1 (one) time each day. Take with 150 mg dose do not crush or chew. 90 each 5 Active Active Problems Problem Noted Date Diagnosed Date Encounter for long-term (cur rent) use of high-risk medication 03/08/2024 History of reconstruction of left breast 024 History of left mastectomy 02/26/2024 History of left breast cancer 02/26/2024 History of lobular carcinoma in situ (LCIS) of b reast 02/26/2024 JESÚS (generalized anxiety disorder) 06/20/2022 Recurrent major depressive d isorder, in partial remission (CMS/HCC V24) 06/20/2022 Malignant tumor of breast ([facility] V24, [facility] V28) 04/01/2022 Lobular carcinoma in situ (LCIS) of right breast 03/19/2022 Overview (06/16/2023): Added automatically from request for surgery [id number] Atypical ductal hyperplasia of right breast 08/2021 Osteopenia 07/14/2018 Pure hypercholesterolemia 04/01/2012 Scoliosis, or kyphoscoliosis, idiopathic 012 Disorder of bone and articular cartilage 012 Essential hypertension 02/18/2012 Encounters Date Type Department Care Team Description 05/17/2024 8:50 AM EST Telemedicine [address] [place] [address] Mirela Noel MD Recurrent major depressive disorder, in partial remission ([facility] V24) (Primary Dx); JESÚS (generalized anxiety disorder); Encounter for long-term (current) use of high-risk medication; Lobular carcinoma in situ (LCIS) of right breast; Scoliosis, or kyphoscoliosis, idiopathic from Last 3 Months Surgical History Surgery Date Site/Laterality Comments BREAST SURGERY PROCEDURE:BREAST SURGERY;COMMENT:left CATARACT EXTRACTION W/ INTRAOCULAR LENS IMPLANT PROCEDURE:CATARACT EXTRACTION W/ INTRAOCULAR LENS IMPLANT COLONOSCOPY PROCEDURE:COLONOSCOPY BREAST SURGERY 04/12/2022 Right PROCEDURE:BREAST SURGERY;COMMENT:Procedure: BREAST MASS / LUMPECTOMY / MASTECTOMY PARTIAL W/ PREOP NEEDLE LOC; Surgeon: Rufus Hurt MD; Location: [facility] MAIN OPERATING ROOM; Service: Breast; Laterality: Right; Medical History Medical History Date Comments Breast cancer ([facility] V24, [facility] V28) DX:Breast cancer (HCC);COMMENT:rx with chemo Hyperlipidemia DX:Hyperlipidemi a Hypertension DX:Hypertension Family History Medical History Relation Name Comments Depression Maternal Grandmother Depression Mother's Sister Relation Name Status Comments Maternal Grandmother Mother's Sister Social History Tobacco Use Types Packs/Day Years Used Date Smoking Tobacco: Former Smokeless Tobacco: Current Tobacco Cessation:Ready to Q uit: Not Asked; Counseling Given: Not Answered Alcohol Use Standard Drinks/Week Comments Yes 7 (1 standard drink = 0.6 oz pur e alcohol) Comments No Sex and Gender Information Value Date Recorded Sex Assigned at Not on file Legal Sex Female 4:26 PM EST Gender Identity Not on file Sexual Orientation Not on file Obstetrics History Para Term AB IAB SAB Ectopic Multiple Livin g Live Births 0 0 0 Last Filed Vital Signs Vital Sign Reading Time Taken Comments Blood Pressure 130/84 02/26/2024 9:47 AM EST Pulse 90 02/26/2024 9:47 AM EST Temperature 36.2 ??C (97.2 ??F) 02/26/2024 9:47 AM ES T Respiratory Rate - - Oxygen Saturation 100% 02/26/2024 9:47 AM EST Inhaled Oxygen Concentration - - Weight 49 kg (108 lb) 05/17/2024 8:59 AM EST Height 152.4 cm (5') 05/17/2024 8:59 AM EST Body Mass Index 21.09 05/17/2024 8:59 AM EST Plan of Treatment Upcoming Encounters Date Type Department Care Team (Late st Contact Info) Description 08/10/2024 8:50 AM EDT Telemedicine Behavioral Health - [address] [place] [phone] Mirela Noel MD [address] [place] [address] [address] [place] [address] 08/31/2024 8:40 AM EDT Office Visit [facility] Breast Health Consult [address] [place] [address] [phone] Rufus Hurt MD [address] [place] [address] 10/11/2024 11:00 AM EDT Office Visit Hematology and Oncology - [address] [phone] Maria Luz Lynne MD [address] [place] [address] Health Maintenance Due Date Last Done Comments Pneumococcal Vaccine: 50+ Years (3 of 3 - PCV) 03/17/2020 03/17/2019, 04/28/2016 Falls Risk Assessment 03/13/2022 Hepatitis C Screening 03/13/2022 Medicare Annual Wellness Visit 03/13/2022 Social Influencers of Health Screening 03/13/2022 Zoster Vaccines (2 of 2) 04/22/2022 02/25/2022 Colorectal Cancer Screening: Stool Based Tests (FOBT/FIT) 10/24/2023 10/23/2022, 10/23/2022 Hypertension/CHF/CAD Annual BMP Blood Test 10/09/2024 10/10/2023, 10/10/2023, 08/15/2022, Additional history exists Depression Screening 05/17/2025 05/17/2024 Breast Cancer Screening 03/08/2026 03/08/2024, 05/09 DTaP,Tdap,and Td Vaccines (2 - Td or Tdap) 04/28/2026 04/28/2016 Cholesterol Screening (Lipid Panel) 06/04/2027 06/04/2022 Osteoporosis Screening (Bone Density Screening) 08/12/2033 08/13/2023 RSV Immunization Adult Patients Completed 05/21/2023 COVID-19 Vaccine Completed 03/20/2024, , 02/25/2022, Additional history exists Influenza Vaccine Completed 03/20/2024, , 03/15/2022, Additional history exists HIB Vaccines Aged Out No longer eligi ble based on patient's age to complete this topic HPV Vaccines Aged Out No longer eligi ble based on patient's age to complete this topic Hepatitis A Vaccines Aged Out No long er eligible based on patient's age to complete this topic Hepatitis B Vaccines Aged Out No long er eligible based on patient's age to complete this topic IPV Vaccines Aged Out No longer eligi ble based on patient's age to complete this topic MMR Vaccines Aged Out No longer eligi ble based on patient's age to complete this topic Meningococcal ACWY Vaccine Aged Out N o longer eligible based on patient's age to complete this topic Meningococcal B Vaccine Aged Out No l onger eligible based on patient's age to complete this topic RSV Immunization Patients Under 20 months Aged Out No longer eligible based on patient's age to complete this topic Varicella Vaccines Aged Out No longer eligible based on patient's age to complete this topic Procedures Procedure Name Priority Date/Time Associated Diagnosis Comments MG MAMMO DIGITAL DIAGNOSTIC W HELIO RIGHT Routine 03/08/2024 4:35 PM EST Mass overlapping multiple quadrants of right breast HM STOOL BASED TEST Routine 10/23/2022 ANNUAL BMP BLOOD TEST Routine 08/15/2022 LIPID PANEL Routine 06/04/2022 from Last 3 Months or Most Recently Relevant to Health Maintenance Results * MG Mammo Digital Diagnostic w Helio Right (03/08/2024 4:35 PM EST) Anatomical Region Laterality Modality Breast Right Mammography 03/08/2024 5:14 PM EST Impressions 03/08/2024 5:16 PM EST No findings suspicious for malignancy. OVERALL ASSESSMENT: BI-RADS 2 - BENIGN RECOMMENDATION: Return to annual schedule recommended for the right breast.See report for recommendation. The patient will receive a patient lay summary regarding their personal breast density per current federal guidelines. Verbal communication of these findings and recommendations was given to the patient at the time of the examination. [facility], [address] [place] [address], [id number], [phone] Report reviewed and signed by : Dr. Juju Lee on 03/08/2024 5:16 PM. Workstation Name - [id number] -------- FINAL REPORT -------- Dictated By: Juju Lee Dictated Date: 03/08/2024 17:14 ET Assigned Physician: Juju Lee Reviewed and Electronically Signed By: Juju Lee Signed Date: 03/08/2024 17:16 ET Workstation ID: [id number] Transcribed By: Self Edit Transcribed Date: 03/08/2024 17:14 ET Narrative 03/08/2024 5:16 PM EST EXAMINATION: MM DIGITAL DIAGNOSTIC MAMMOGRAM WITH TOMOSYNTHESIS, RIGHT US DIAGNOSTIC BREAST, RIGHT CLINICAL INFORMATION: Callback from recent screening breast ultrasound for further evaluation of altered echotexture, 10 o'clock and right breast mass, 12 o'clock. ?? COMPARISON: Diagnostic mammogram 05/09/2023. ??Outside mammogram 09/18/2021. ??Outside screening breast ultrasound 04/26/2020. TECHNIQUE: Standard views were obtained of the right breast(s) using tomosynthesis technique. Targeted sonographic evaluation was performed using a high frequency linear transducer. MAMMOGRAM FINDINGS: D - The breasts are extremely dense which lowers the sensitivity of mammography.Surgical clips are demonstrated in the upper outer quadrant of the right breast at the site of excision for atypical ductal hyperplasia. ??Associated architectural distortion, as expected. ??Biopsy clip in the 8 o'clock position at the site of previous benign biopsy. No new suspicious masses, grouped calcifications or architectural distortion. CAD was utilized for this examination and, after further review, no additional findings are identified. ULTRASOUND FINDINGS: Sonographic evaluation of the right breast at 10 o'clock, 3 cm from the nipple, demonstrates an unremarkable area of scarring correlating to the area of surgery evident mammographically. ??Sonographic evaluation of the right breast at 12 o'clock, 3 cm from the nipple, demonstrates a stable oval mass measuring up to 1 cm in size, unchanged compared to 202, favoring a benign process. Rufus Hurt MD IMG BI PROCEDURES Final Result * Stool Based Tests (FOBT/FIT) (10/23/2022) [facility] Colorectal Cancer Screening: Stool Based Tests normal, abstracted [facility] Provider [facility] Final Result * Annual BMP Blood Test (08/15/2022) [facility] Annual BMP Blood Test abstracted [facility] Final Result * Lipid panel (06/04/2022) [facility] LDL/HDL Ratio 0 Comment:no interpretation, a bstracted Triglycerides 0 mg/dL Comment:no interpretation, a bstracted Cholesterol 0 mg/dL Comment:no interpretation, a bstracted HDL 0 mg/dL Comment:no interpretation, a bstracted LDL Cholesterol 0 mg/dL Comment:no interpretation, a bstracted Blood Venous blood specimen / Unknown us Historical Provider LAB BLOOD ORDERABLES Alysia l Result from Last 3 Months or Most Recently Relevant to Health Maintenance Insurance [employer] MED[employer]ARE Care Teams System Manager Relationship Specialty Start Date End Date Salima Medley DO [address] [place], [place] [address] PCP - General 10/02/23
--- OUTSIDE RECORDS SUMMARY | 2024-07-30 11:41 | XMS_ITS | Encounter Summary ---
Author Organization [facility] Address [address] [place] [address] Care Team Providers Care Pharmacy Operations Coordinator Name Role Phone Bhavesh Marie MD Primary Care Provider [phone] Bhavesh Marie MD Unavailable [phone] Bhavesh Marie MD Unavailable [phone] Ximena Hollis MD Unavailable [phone] Encounter Details Date Type Department Care Team (Late st Contact Info) Description 05/31/2014 Scanned Document [address] [place] [address] [phone] Provider, Generic Social History Tobacco Use Types [...] Priority Date/Time Associated Diagnosis Comments PATHOLOGY BREAST 05/31/2014 documented in this encounter Results * PATHOLOGY BREAST (05/31/2014) Narrative 05/31/2014 Ordered by an unspecified provider. us Generic Provider [facility] HX PATH PROCEDURES Final Re sult documented in this encounter Visit Diagnoses Not on filedocumented in this encounter Care Teams Pharmacy Operations Coordinator Relationship Specialty Start Date End Date Bhavesh Marie MD PCP - General Cardiovascular Disease 08/28/15 Bhavesh Marie MD [address] [place] [place] [address] PCP - [employer] Attributed 01/12/19 09/12/19 Bhavesh Marie MD [address] [place] [place] [address] PCP - APNCT [employer] Attributed 04/14/22 08/11/22 Ximena Hollis MD [address] [place] [address] PCP - APNCT [employer] Attributed 08/12/22 02/12/24 documented as of this encounter
--- OUTSIDE RECORDS SUMMARY | 2024-07-30 11:41 | XMS_ITS | Encounter Summary ---
Author Organization [facility] Address [address] [place] [address] Care Team Providers Care Rubber Tile Floor Layer Name Role Phone Bhavesh Marie MD Primary Care Provider [phone] Bhavesh Marie MD Unavailable [phone] Bhavesh Marie MD Unavailable [phone] Ximena Hollis MD Unavailable [phone] Encounter Details Date Type Department Care Team (Late st Contact Info) Description 03/31/2003 Scanned Document [address] [place] [address] [phone] Provider, Generic Social History Tobacco Use Types [...] Priority Date/Time Associated Diagnosis Comments PATHOLOGY BREAST 03/31/2003 documented in this encounter Results * PATHOLOGY BREAST (03/31/2003) Narrative 03/31/2003 Ordered by an unspecified provider. us Generic Provider HHC HX PATH PROCEDURES Final Re sult documented in this encounter Visit Diagnoses Not on filedocumented in this encounter Care Teams Rubber Tile Floor Layer Relationship Specialty Start Date End Date Bhavesh Marie MD PCP - General Cardiovascular Disease 08/28/15 Bhavehs Marie MD [address] [place] [place] [address] PCP - [employer] Attributed 01/12/19 09/12/19 Bhavesh Marie MD [address] [place] [place] [address] PCP - APNCT [employer] Attributed 04/14/22 08/11/22 Ximena Hollis MD [address] [place] [address] PCP - APNCT [employer] Attributed 08/12/22 02/12/24 documented as of this encounter
--- OUTSIDE RECORDS SUMMARY | 2024-07-30 11:41 | XMS_ITS | Clinical Summary ---
Author Organization [facility] Address [address] [place] [address] Care Team Providers Care Crew Leader Name Role Phone Salima Medley DO Primary Care Provider [phone] Allergies Active Allergy Reactions Criticality Noted Date Comments Dust Itching 1960 Other 09/15/2018 Mold Medications Medication Sig Dispensed Refills Start Date End Date Status azelastine (ASTELIN) 0.1 % nasal spray spray or apply 2 sprays inside Nose 2 (two) times a day. 0 01/16/2022 Active rosuvastatin (CRESTOR) tablet 40 mg Take 1 tablet (40 mg total) by mouth every night at bedtime. 0 Active alendronate (FOSAMAX) tablet 70 mg Take 1 tablet (70 mg total) by mouth every 7 days. 0 03/28/2022 Active ezetimibe (ZETIA) tablet 10 mg Take 1 tablet (10 mg total) by mouth every night at bedtime. 0 Active Loratadine 10 MG CAPS Take by mouth daily. 0 Active estradiol (ESTRACE) 0.1 MG/GM vaginal cream estradiol 0.01% (0.1 mg/gram) vaginal cream APPLY 1 GRAM VAGINALLY 2 TIMES A WEEK 0 Active Naloxone HCl 4 MG/0.1ML LIQD USE DIRECTED NEEDED ACCIDENTAL OVERDOSE 0 05/20/2022 Active SODIUM FLUORIDE, DENTAL GEL, 1.1 % GEL PreviDent 5000 Booster Plus 1.1 % dental paste 0 Active traZODone (DESYREL) 50 MG tablet trazodone 50 mg tablet TAKE 1 TABLET BY MOUTH EVERYDAY AT BEDTIME 0 07/15/2022 Active tretinoin (RETIN-A) 0.05 % cream Apply topically. 0 Active gabapentin (NEURONTIN) 100 MG capsule Take 1 capsule (100 mg total) by mouth 3 (three) times a day. 0 12/01/2022 Active progesterone (PROMETRIUM) capsule 200 mg 0 Active meloxicam (MOBIC) 15 MG tablet TAKE 1 TABLET BY MOUTH EVERY DAY NEEDED WITH FOOD 0 03/29/2023 Active lisinopril (PRINIVIL,ZESTRIL) tablet 20 mg Take 2 tablets (40 mg total) by mouth daily. 0 Active oxyCODONE (ROXICODONE) 15 MG immediate release tablet TAKE 1 TABLET EVERY 4 TO 6 HOUS NEEDED. MAX 5 PER DAY 0 05/18/2023 Active gabapentin (NEURONTIN) 300 MG capsule Take 1 capsule (300 mg total) by mouth 3 (three) times a day. 0 05/16/2023 Active tamoxifen (NOLVADEX) 20 MG tablet Take 1 tablet (20 mg total) by mouth daily 90 tablet 3 10/10/2023 Active meloxicam (MOBIC) 7.5 MG tablet Take 1 tablet (7.5 mg total) by mouth 2 (two) times a day as needed. with meals 0 11/04/2023 Active venlafaxine (EFFEXOR-XR) 75 MG 24 hr capsule Take 1 capsule (75 mg total) by mouth daily. Take with 150 mg 90 capsule 0 11/27/2023 Active ARIPiprazole (ABILIFY) 2 MG tablet Take 1 tablet (2 mg total) by mouth daily. 90 tablet 0 11/27/2023 Active venlafaxine (EFFEXOR-XR) 150 MG 24 hr capsule Take 1 capsule (150 mg total) by mouth daily. 90 capsule 0 11/27/2023 Active diazePAM (VALIUM) 10 MG tablet TAKE TAKE 1 TABLET BY MOUTH 30MIN PRIOR TO PROCEDURE NEEDED AND BRING OTHER TAB WITH YOU 0 12/29/2023 Active Linzess 72 MCG CAPS Take 1 capsule by mouth every morning before breakfast. 0 12/18/2023 Active morphine (MSIR) 15 MG tablet TAKE 1 TABLET 1 HOUR BEFORE PROCEDURE NEEDED, BRING OTHER TAB WITH YOU 0 12/29/2023 Active rosuvastatin (CRESTOR) tablet 40 mg Take 1 tablet (40 mg total) by mouth daily. 0 12/08/2023 Active Active Problems Problem Noted Date Diagnosed Date Recurrent major depressive disorder, in partial remission 06/20/2022 JESÚS (generalized anxiety disorder) 06/20/2022 Encounter for long-term (current) use of medicat ions 06/20/2022 Malignant tumor of breast 04/01/2022 Lobular carcinoma in situ (LCIS) of right breast 03/19/2022 Overview: Added automatically from request for surgery [id number] History of breast biopsy 11/18/2021 Personal history of breast cancer 11/18/2021 Atypical ductal hyperplasia of right breast 08/2021 Family history of neoplasm of ovary 06/07/2019 Osteopenia 07/14/2018 Pure hypercholesterolemia 04/01/2012 Scoliosis, or kyphoscoliosis, idiopathic 012 Disorder of bone and articular cartilage 012 Essential hypertension 02/18/2012 Immunizations Name Administration Dates Next Due Covid-19 (Moderna 12+) 100mcg/0.5mL dosage 07/10 Family History Medical History Relation Name Comments Depression Maternal Aunt Depression Maternal Grandmother Relation Name Status Comments Maternal Aunt Maternal Grandmother Social History Tobacco Use Types Packs/Day Years Used Date Smoking Tobacco: Former Cigarettes Smokeless Tobacco: Current Chew Tobacco Cessation:Ready to Q uit: Not Asked; Counseling Given: Not Answered Alcohol Use Standard Drinks/Week Comments Yes 7 (1 standard drink = 0.6 oz pur e alcohol) Sex and Gender Information Value Date Recorded Sex Assigned at Female 07/10/2020 8:49 AM EDT Gender Identity Not on file Sexual Orientation Not on file Job Start Date Occupation Industry Not on file Not on file Not on file Last Filed Vital Signs Vital Sign Reading Time Taken Comments Blood Pressure 148/95 10/10/2023 11:59 AM EDT Pulse 77 10/10/2023 11:59 AM EDT Temperature 36.6 ??C (97.8 ??F) 10/10/2023 11:59 AM E DT Respiratory Rate 18 10/10/2023 11:59 AM EDT Oxygen Saturation 97% 10/10/2023 11:59 AM EDT Inhaled Oxygen Concentration - - Weight 49.9 kg (110 lb) 01/01/2024 3:54 PM EDT Height 152.4 cm (5') 01/01/2024 3:54 PM EDT Body Mass Index 21.48 01/01/2024 3:54 PM EDT Plan of Treatment Health Maintenance Due Date Last Done Comments Hepatitis C Screening 1950 Depression Screening 1962 Preventative Health Evaluation 1968 Colon Cancer Screening (Colonoscopy) 10/05/1995 Fall Risk Assessment 10/05/2015 Osteoporosis Screening (DEXA Scan) 10/05/2015 Pneumococcal Vaccine (3 of 3 - PCV) 03/17/2020 03/17/2019, 04/28/2016 COVID-19 Vaccine (3 - Moderna risk series) 08/07/2020 07/10/2020, 06/07/2020 Shingrix-Zoster Vaccine (2 of 2) 04/22/2022 02/25/2022 Influenza Vaccine (#1) 2023 2, 03/19/2021, 03/19/2021, Additional history exists Breast Cancer Screening (Mammogram) 05/09/2025 05/09/2023 RSV Adult > 60+ Yrs or (1 - 1-dose 75+ series) 2025 DTap / Tdap / Td (2 - Td or Tdap) 04/28/2026 04/28/2016 Hepatitis B Vaccines Aged Out No long er eligible based on patient's age to complete this topic RSV Ped < 20 months Aged Out No longe r eligible based on patient's age to complete this topic Care Teams Crew Leader Relationship Specialty Start Date End Date Salima Medley DO [address] [place] [address] PCP - General Pediatrics 10/02/23
--- OUTSIDE RECORDS SUMMARY | 2024-07-30 11:41 | XMS_ITS | Encounter Summary ---
Author Organization [facility] Address [address] [place] [id number] Care Team Providers Care Public Health Policy Analyst Name Role Phone Bhavesh Marie MD Primary Care Provider Bhavesh Marie MD Unavailable [phone] Ximena Hollis MD Unavailable Encounter Details Date Type Department Care Team (Latest Contact Info) Description 03/23/2020 Lab Requisition [facility] Drive Through [address] [place] [address] [address] [place] [address] Vivek Cooper MD [address] [place] [phone] Encounter for laboratory testing for COVID-19 virus Social History Tobacco Use Types Packs/Day Years Used Date Smoking Tobacco: Former Cigarettes Q uit: 1987 Smokeless Tobacco: Never Alcohol Use Standard Drinks/Week [...] have Coronavirus / COVID-19? No / Unsure 03/21/2020 5:27 PM EST documented as of this encounter Plan of Treatment Not on file documented as of this encounter Procedures Procedure Name Priority Date/Time Associated Diagnosis Comments COVID-19 RT-PCR ([facility]) Routine 03/23/2020 2:31 PM EST Encounter for laboratory testing for COVID-19 virus [ICD-10-CM] documented in this encounter Results * COVID-19 RT-PCR ([facility]) (03/23/2020 2:31 PM EST) COVID-19 RT-PCR SARS-COV-2 NOT DETECTED Not Detected 03/24/2020 1:19 PM EST [facility] Comment: ADDITIONAL INFORMATION The JAYANT COVID-19 RT-PCR Assay is Real-Time Reverse [employer] Chief Polymerase Chain Reaction (toe puller-PCR) for the in vitro qualitative detection of three SARS-Cov-2 target sequences unique to the coronavirus disease 2019 (COVID-19). This is an Emergency Use Authorization (EUA) in vitro diagnostic (IVD) test that has been modified to include the DataXu automated liquid handler. Its analytical performance characteristics have been determined by the orderlies teacher and verified by [facility] in a manner consistent with CLIA requirements. This test may be used for clinical purposes and should not be regarded as purely investigational or for research use only. This laboratory is certified under the Clinical Laboratory Improvement Amendments of 1988 (CLIA) as qualified to perform high complexity clinical testing. Reference interval for this testing is SARS-CoV-2 Not Detected. Fact sheets for this Emergency Use Authorization assay can be found at the following links: For Healthcare Providers: https://www.fda.gov/media/061680/download For Patients: https://www.fda.gov/media/256321/download TEST LIMITATIONS Positive results are indicative of the presence of SARS-CoV-2 RNA; clinical correlation with patient history and other diagnostic information is necessary to determine patient infection status. Positive results do not rule out bacterial infection or co-infection with other viruses. The agent detected may not be the definite cause of disease. Negative results do not exclude SARS-CoV-2 infection and should not be used as the sole basis for patient management decisions. Negative results must be combined with clinical observations, patient history, and epidemiological information. Improper sample collection, transport or storage may impede the ability of the assay to detect target sequences. Inconclusive specimens are not repeated, and recollection and submission of a new sample is recommended. The performance of the TaqPath COVID-19 Combo Kit was established using nasopharyngeal swab, nasopharyngeal aspirate, and bronchoalveolar lavage (BAL) specimens. The limit of detection for the assay was determined to be 0.75copies/uL in the specimens of nasopharyngeal swab. Other specimen types may be need for further validation before testing on this system. For further details refer to the [employer] TaqPath COVID-19 Combo Kit EUA submission (https://www.Yaoot[employer].com.gov/media/392325/download). ----- Test performed by [facility] [employer], [address] [place] [id number] CLIA# [id number] ?[id number] ? Bora Dubon M.D., Ph.D., [facility], Clinical Home Staging Specialist Microbiology Nasopharyngeal swab / Unknown 03/23/2020 2:31 PM EST 03/23/2020 2:31 PM EST Narrative [facility] - 03/24/2020 1:19 PM EST Performed at [facility], [address] [place] [address], [place] Lic [id number], CLIA [id number] us Vivek Cooper MD MICROBIOLOGY - GENERAL ORDERABLE S Final Result [facility] [address] [facility] [place] [address] documented in this encounter Visit Diagnoses Diagnosis Encounter for laboratory testing for COVID-19 virus documented in this encounter Care Teams Public Health Policy Analyst Relationship Specialty Start Date End Date Bhavesh Marie MD PCP - General Cardiovascular Disease 08/28/15 Bhavesh Marie MD [address] [facility] [place] [address] PCP - APNCT [employer] Attributed 04/14/22 08/11/22 Ximena Hollis MD [address] [place] [address] PCP - APNCT [employer] Attributed 08/12/22 02/12/24 documented as of this encounter
== END 2024-07-30 12:14 | disposition home or self-care (01) ==
LOC: HO.HNS 10:38
PROVIDERS: Visit Provider Neurological Surgery
DX: M41.119 Juvenile idiopathic scoliosis, site unspecified (principal); M81.0 Age-related osteoporosis without current pathological fracture
CPT/HCPCS: 99203

== ENCOUNTER → 2024-07-30 10:38 | Outpatient (BNVA) | payer MEDICARE, SELFPAY | PROVIDERS: Visit Provider Neurological Surgery | DX: M41.119 Juvenile idiopathic scoliosis, site unspecified (principal); M81.0 Age-related osteoporosis without current pathological fracture | CPT/HCPCS: 99202 ==